=== PATIENT | female | born 1940 | race Caucasian/White ===

== ENCOUNTER → 2017-06-03 | Outpatient (CLI) | payer MEDICARE ==
--- NOTE | 2017-06-03 13:55 | MM ---
Reason for exam: screening (asymptomatic). Last mammogram was performed 1 year ago. History: Patient is postmenopausal. Took estrogen for 15 years. Took progesterone for 15 years. Physical Findings: A clinical breast exam by your physician is recommended on an annual basis and results should be correlated with mammographic findings. MG 3D Screening Mammo W/Cad Bilateral CC and MLO view(s) were taken. Prior study comparison: June 02, 2016, bilateral MG screening mammo w CAD. May 23, 2015, bilateral MG screening mammo w CAD. There are scattered fibroglandular densities. There is chronic nodularity in the left breast. No significant changes when compared with prior studies. ASSESSMENT: Benign, BI-RAD 2 RECOMMENDATION: Routine screening mammogram of both breasts in 1 year.
== END | disposition home or self-care (01) ==
LOC: RADMAMWWP 10:01
PROVIDERS: ATTEND Obstetrics & Gynecology
DX: Z12.31 Encounter for screening mammogram for malignant neoplasm of breast (principal)
CPT/HCPCS: 77063; G0202

== ENCOUNTER → 2020-07-10 | Outpatient (CLI) | payer MEDICARE ==
--- NOTE | 2020-07-10 19:27 | CT ---
EXAMINATION TYPE: CT brain wo con DATE OF EXAM: 07/10/2020 HISTORY: Headache x2 weeks not responding to tx. Pt feels pain in temporal/occipital region. CT DLP: 1138 mGycm. Automated Exposure Control for Dose Reduction was Utilized. TECHNIQUE: CT scan of the head is performed without contrast. COMPARISON: None. FINDINGS: There is no acute intracranial hemorrhage or midline shift identified. There is diffuse v entricular and sulcal prominence consistent with diffuse age-related cerebral atrophy. There is low- attenuation in the deep and periventricular white matter consistent with chronic small vessel ischemi c change in patient of this age. The globes are intact and the visualized sinuses are clear. IMPRESSION: No acute intracranial hemorrhage or midline shift. There is mild to moderate diffuse ag e-related cerebral atrophy and moderate to severe chronic small vessel ischemic change noted.
== END | disposition home or self-care (01) ==
LOC: RADCTMAIN 17:14
PROVIDERS: ATTEND Family Medicine
DX: I67.82 Cerebral ischemia (principal); R51.9 Headache, unspecified
CPT/HCPCS: 70450

== ENCOUNTER → 2020-09-26 | Outpatient (CLI) | payer MEDICARE ==
--- NOTE | 2020-10-01 11:33 | MM ---
Reason for exam: screening (asymptomatic). Last mammogram was performed 3 years and 4 months ago. History: Patient is postmenopausal. Took estrogen for 15 years. Took progesterone for 15 years. Physical Findings: A clinical breast exam by your physician is recommended on an annual basis and results should be correlated with mammographic findings. MG 3D Screening Mammo W/Cad Bilateral CC and MLO view(s) were taken. XCCL view(s) were taken of the right breast. Prior study comparison: June 03, 2017, bilateral MG 3d screening mammo w/cad. June 02, 2016, bilateral MG screening mammo w CAD. There are scattered fibroglandular densities. There is chronic nodularity in the left breast. No significant changes when compared with prior studies. ASSESSMENT: Benign, BI-RAD 2 RECOMMENDATION: Routine screening mammogram of both breasts in 1 year.
== END | disposition home or self-care (01) ==
LOC: RADMAMWWP 13:18
PROVIDERS: ATTEND Family Medicine
DX: Z12.31 Encounter for screening mammogram for malignant neoplasm of breast (principal)
CPT/HCPCS: 77063; 77067

== ENCOUNTER → 2021-04-17 | Outpatient (CLI) | payer MEDICARE ==
--- NOTE | 2021-04-17 11:17 | MR ---
EXAMINATION TYPE: MR lumbar spine wo con DATE OF EXAM: 04/17/2021 COMPARISON: MRI 03/22/2012 HISTORY: Lower back pain. TECHNIQUE: Multiplanar, multisequence images of the lumbar spine were acquired without IV contrast. L1-L2: Circumferential extension endplate disc complex results in some right-sided foraminal encroach ment greater than left. There is a right lateral disc bulge causing anterolateral mass effect on the thecal sac, possibly contact with the right L2 nerve root. L2-L3: Posterior broad-based disc bulge extends circumferentially to cause some foraminal encroachmen t towards the right. There is some facet arthropathy with hypertrophy ligamentum flavum causing some posterior lateral mass effect on the thecal sac greater on the right. Posterior broad-based disc bulg e causes minimal anterior mass effect on the thecal sac. L3-L4: Circumferential extension endplate disc complex results in foraminal encroachment on the right possibly contributed by the spinal curvature, left-sided neural foramen not well identified. There i s no sizable disc herniation evident. L4-L5: There is marked severe spinal stenosis, facet arthropathy with hypertrophy ligamentum flavum a s well as circumferential disc bulge is present, spinal stenosis has progressed. Circumferential exte nsion endplate disc complex contributed with the facet arthropathy results in bilateral foraminal enc roachment, there is encroachment on the lateral recesses. L5-S1: There is marked facet arthropathy. Circumferential extension endplate disc complex causes some right-sided foraminal encroachment. Lumbar segments are intact. No paraspinal masses are identified. Conus medullaris has a normal appe arance. The marked scoliotic curvature is again noted convex left. There is multilevel spondylosis, e ndplate discogenic marrow signal change. Lumbar vertebral bodies show preserved height. IMPRESSION: There has been progression of patient's spinal stenosis at L4-5, there is a marked scoliosis. Degener ative disc disease with multilevel facet arthropathy, foraminal encroachment. Additional findings abo ve.
== END | disposition home or self-care (01) ==
LOC: RADMRIMAIN 08:43
PROVIDERS: ATTEND Family Medicine
DX: M48.061 Spinal stenosis, lumbar region without neurogenic claudication (principal); M51.36 Other intervertebral disc degeneration, lumbar region; M47.816 Spondylosis without myelopathy or radiculopathy, lumbar region; M41.86 Other forms of scoliosis, lumbar region
CPT/HCPCS: 72148

== ENCOUNTER 2021-05-12 21:02 | Observation (INO) | payer MEDICARE ==
--- NOTE | 2021-05-12 21:16 | ED ---
General Adult HPI - General Stated complaint: Fall Time Seen by Provider: 05/12/21 21:07 Source: patient, EMS, RN notes reviewed Mode of arrival: EMS Limitations: no limitations - History of Present Illness Initial comments: Patient is a pleasant 81-year-old female presenting to the emergency department following a fall. Incident occurred in the bathroom. Patient was walking bathroom and next thing she knew she woke up on the floor. Patient is unclear if she could've slipped or passed out. A cooper does complain of some discomfort of the back of her head and neck. Patient also has some mild discomfort of her tailbone. Patient denies extremity injury. No weakness. No confusion. No history of chronic recurrent similar symptoms. - Related Data Home Medications Medication Instructions Recorded Confirmed Cholecalciferol [Vitamin D3 (25 2,000 units PO DAILY 06/16/16 06/23/16 Mcg = 1000 Iu)] Losartan-Hctz 50-12.5 mg [Hyzaar 1 tab PO DAILY 06/16/16 06/23/16 50-12.5] Lovastatin [Mevacor] 20 mg PO DAILY 06/16/16 06/23/16 Omeprazole [PriLOSEC] 20 mg PO AC-BRKFST 06/16/16 06/23/16 Sertraline [Zoloft] 50 mg PO DAILY 06/16/16 06/23/16 Previous Rx's Medication Instructions Recorded Acetaminophen-Codeine 300-30mg 1 each PO Q4HR PRN #30 tab 06/24/16 [Tylenol w/codeine #3] Ibuprofen [Motrin] 600 mg PO Q6HR PRN #60 tab 06/24/16 Allergies Allergy/AdvReac Type Severity Reaction Status Date / Time No Known Allergies Allergy Verified 06/23/16 09:46 Review of Systems ROS Statement: Those systems with pertinent positive or pertinent negative responses have been documented in the HPI. ROS Other: All systems not noted in ROS Statement are negative. Constitutional: Denies: fever Eyes: Denies: eye pain ENT: Denies: ear pain Respiratory: Denies: cough Cardiovascular: Denies: chest pain Endocrine: Denies: fatigue Gastrointestinal: Denies: abdominal pain Genitourinary: Denies: dysuria Musculoskeletal: Reports: as per HPI Skin: Denies: rash Neurological: Reports: as per HPI. Denies: weakness, confusion General Exam Limitations: no limitations General appearance: alert, in no apparent distress Head exam: Present: atraumatic, normocephalic Eye exam: Present: normal appearance, PERRL, EOMI. Absent: nystagmus ENT exam: Present: normal oropharynx Neck exam: Present: normal inspection, tenderness (Mild diffuse), other (C- collar is present) Respiratory exam: Present: normal lung sounds bilaterally Cardiovascular Exam: Present: regular rate, normal rhythm GI/Abdominal exam: Present: soft. Absent: tenderness Extremities exam: Present: normal inspection, full ROM. Absent: tenderness Back exam: Present: normal inspection. Absent: tenderness, vertebral tenderness Neurological exam: Present: alert, oriented X3, CN II-XII intact. Absent: motor sensory deficit Expanded Neurological exam: Present: protecting the airway Patient oriented to: Present: person, place, time Speech: Present: fluid speech Cranial nerves: EOM's Intact: Normal, Facial Sensation: Normal Motor strength exam: RUE: 5, LUE: 5, RLE: 5, LLE: 5 Eye Response: (4) open spontaneously Motor Response: (6) obeys commands Verbal Response: (5) oriented Psychiatric exam: Present: normal affect, normal mood Skin exam: Present: normal color Course Vital Signs 05/12/21 05/12/21 21:08 22:33 Temperature 98.2 F Pulse Rate 66 78 Respiratory 18 20 Rate Blood Pressure 192/86 186/91 O2 Sat by Pulse 100 97 Oximetry EKG Findings - EKG Comments: EKG Findings:: Normal sinus rhythm with a rate of 65. CT 160. QRS 84. QT 404. QTC 420. Left axis. Normal QRS. No acute st change Medical Decision Making - Medical Decision Making Patient reevaluated. Patient and family updated. [facility] was paged for admission covering for Dr. Yuliana Mix. - Lab Data Result diagrams: 05/12/21 21:19 05/12/21 21:19 Lab Results 05/12/21 05/12/21 05/12/21 Range/Units 21:19 21:19 21:19 WBC 8.2 (3.8-10.6) k/uL RBC 4.38 (3.80-5.40) m/uL Hgb 13.4 (11.4-16.0) gm/dL Hct 41.4 (34.0-46.0) % MCV 94.6 (80.0-100.0) fL MCH 30.7 (25.0-35.0) pg MCHC 32.4 (31.0-37.0) g/dL RDW 12.2 (11.5-15.5) % Plt Count 217 (150-450) k/uL MPV 8.2 Neutrophils % 64 % Lymphocytes % 26 % Monocytes % 6 % Eosinophils % 2 % Basophils % 0 % Neutrophils # 5.2 (1.3-7.7) k/uL Lymphocytes # 2.1 (1.0-4.8) k/uL Monocytes # 0.5 (0-1.0) k/uL Eosinophils # 0.2 (0-0.7) k/uL Basophils # 0.0 (0-0.2) k/uL PT 10.0 (9.0-12.0) sec INR 0.9 (<1.2) APTT 21.9 L (22.0-30.0) sec Sodium 137 (137-145) mmol/L Potassium 3.6 (3.5-5.1) mmol/L Chloride 99 (98-107) mmol/L Carbon Dioxide 30 (22-30) mmol/L Anion Gap 8 mmol/L BUN 26 H (7-17) mg/dL Creatinine 0.62 (0.52-1.04) mg/dL Est GFR (CKD-EPI)AfAm >90 (>60 ml/min/1.73 sqM) Est GFR (CKD-EPI)NonAf 85 (>60 ml/min/1.73 sqM) Glucose 105 H (74-99) mg/dL Calcium 9.7 (8.4-10.2) mg/dL Total Bilirubin 0.5 (0.2-1.3) mg/dL AST 24 (14-36) U/L ALT 17 (4-34) U/L Alkaline Phosphatase 65 (38-126) U/L Troponin I (0.000-0.034) ng/mL Total Protein 6.7 (6.3-8.2) g/dL Albumin 4.0 (3.5-5.0) g/dL 05/12/21 Range/Units 21:19 WBC (3.8-10.6) k/uL RBC (3.80-5.40) m/uL Hgb (11.4-16.0) gm/dL Hct (34.0-46.0) % MCV (80.0-100.0) fL MCH (25.0-35.0) pg MCHC (31.0-37.0) g/dL RDW (11.5-15.5) % Plt Count (150-450) k/uL MPV Neutrophils % % Lymphocytes % % Monocytes % % Eosinophils % % Basophils % % Neutrophils # (1.3-7.7) k/uL Lymphocytes # (1.0-4.8) k/uL Monocytes # (0-1.0) k/uL Eosinophils # (0-0.7) k/uL Basophils # (0-0.2) k/uL PT (9.0-12.0) sec INR (<1.2) APTT (22.0-30.0) sec Sodium (137-145) mmol/L Potassium (3.5-5.1) mmol/L Chloride (98-107) mmol/L Carbon Dioxide (22-30) mmol/L Anion Gap mmol/L BUN (7-17) mg/dL Creatinine (0.52-1.04) mg/dL Est GFR (CKD-EPI)AfAm (>60 ml/min/1.73 sqM) Est GFR (CKD-EPI)NonAf (>60 ml/min/1.73 sqM) Glucose (74-99) mg/dL Calcium (8.4-10.2) mg/dL Total Bilirubin (0.2-1.3) mg/dL AST (14-36) U/L ALT (4-34) U/L Alkaline Phosphatase (38-126) U/L Troponin I <0.012 (0.000-0.034) ng/mL Total Protein (6.3-8.2) g/dL Albumin (3.5-5.0) g/dL - Radiology Data Radiology results: report reviewed (Computed tomography scan of the brain shows atrophy and chronic small vessel ischemia. No definite acute intercranial abnormality. Lacunar infarct new from prior exam. CT cervical spine shows cervical fusion surgery. No fracture.), image reviewed Disposition Clinical Impression: Syncope Disposition: ADMITTED IP TO THIS HOSP Is patient prescribed a controlled substance at d/c from ED?: No Referrals: Yuliana Marin MD [Primary Care Provider] - 1-2 days Decision Time: 22:44
[2021-05-12 21:32] LABS: Basophils % (A) 0 %; Eosinophils # (A) 0.2 k/uL (0-0.7); Eosinophils % (A) 2 %; HCT 41.4 % (34.0-46.0); HGB 13.4 gm/dL (11.4-16.0); Lymphocytes # (A) 2.1 k/uL (1.0-4.8); Lymphocytes % (A) 26 %; MCH 30.7 pg (25.0-35.0); MCHC 32.4 g/dL (31.0-37.0); MCV 94.6 fL (80.0-100.0); Mean Platelet Volume 8.2; Monocytes # (A) 0.5 k/uL (0-1.0); Monocytes % (A) 6 %; Neutrophils # (A) 5.2 k/uL (1.3-7.7); Neutrophils % (A) 64 %; Platelet Count 217 k/uL (150-450); RBC 4.38 m/uL (3.80-5.40); RDW 12.2 % (11.5-15.5); WBC 8.2 k/uL (3.8-10.6)
[2021-05-12 21:41] LABS: ALT 17 U/L (4-34); AST 24 U/L (14-36); African American GFR (CKD) >90 (>60 ml/min/1.73 sqM); Alkaline Phosphatase 65 U/L (38-126); Anion Gap 8 mmol/L; Blood Urea Nitrogen 26 mg/dL (7-17); Calcium 9.7 mg/dL (8.4-10.2); Carbon Dioxide 30 mmol/L (22-30); Chloride 99 mmol/L (98-107); Glucose 105 mg/dL (74-99); Non-African American GFR(CKD) 85 (>60 ml/min/1.73 sqM); Potassium 3.6 mmol/L (3.5-5.1); Sodium 137 mmol/L (137-145); Total Bilirubin 0.5 mg/dL (0.2-1.3); Total Protein 6.7 g/dL (6.3-8.2)
[2021-05-12 22:08] LABS: INR 0.9 (<1.2); Partial Thromboplastin Time 21.9 sec (22.0-30.0)
--- NOTE | 2021-05-12 22:33 | CT ---
EXAMINATION TYPE: CT brain jesse morales con DATE OF EXAM: 05/12/2021 COMPARISON: 07/10/[address] scan HISTORY: Syncope with posterior and right sided head injury. CT DLP: 1383.5 mGycm Automated exposure control for dose reduction was used. Please of the brain and cervical spine obtained without contrast. There is cerebral atrophy. There is no mass effect nor midline shift. There is no sign of intracrania l hemorrhage. There is hypodensity in the periventricular white matter. There is evidence of 1 cm old lacunar infarct anterior right internal capsule. The cervical vertebra have normal alignment. There is multilevel fusion surgery from C2 to C7. There is extensive hardware posteriorly. There is no subluxation. IMPRESSION: Cerebral atrophy and chronic small vessel ischemia. No definite acute intracranial abnormality. Multilevel cervical fusion surgery. No fracture seen. There is new lacunar infarct anterior right internal capsule compared to old exam.
[2021-05-12] MEDS ORDERED: MORPHINE SULFATE 4 MG/ML SYRINGE IVP STA (22:44)
[2021-05-12] MEDS ORDERED: HYDROmorphone 0.5 MG/0.5 ML SYRINGE IVP PRN (22:45)
[2021-05-12] MEDS ORDERED: NALOXONE 0.4 MG/ML 1 ML VIAL IV PRN (22:45)
--- NOTE | 2021-05-12 22:45 | XR ---
EXAMINATION TYPE: XR pelvis AP view DATE OF EXAM: 05/12/2021 COMPARISON: NONE HISTORY: Pain TECHNIQUE: Single view FINDINGS: The pelvic ring appears intact. Proximal femurs are intact. There is lumbar levorotoscolios is. Sacroiliac joints are intact. IMPRESSION: No pelvic fracture seen.
--- NOTE | 2021-05-12 22:46 | XR ---
EXAMINATION TYPE: XR chest 1V portable DATE OF EXAM: 05/12/2021 COMPARISON: NONE HISTORY: Trip and fall TECHNIQUE: Single view FINDINGS: Heart is normal. Lungs are clear of infiltrate. There is no heart failure. Thoracic aorta i s atheromatous. There is no pleural effusion. Bony thorax is intact. There is cervical spine fusion s urgery. IMPRESSION: No active cardiopulmonary disease. Normal heart.
[2021-05-12] MEDS: SODIUM CHLORIDE 0.9% 1,000 ML IV SCH (22:52)
[2021-05-12 23:21] LABS: Amorphous Sediment,Urine Rare /hpf; Appearance,Urine Clear (Clear); Bilirubin,Urine Negative (Negative); Blood,Urine Negative (Negative); Color,Urine Yellow; Glucose,Urine (UA) Negative (Negative); Ketones,Urine Negative (Negative); Leukocyte Esterase,Urine Moderate (Negative); Mucus,Urine Rare /hpf; Nitrite,Urine Negative (Negative); PH, Urine 6.5 (5.0-8.0); Protein,Urine Negative (Negative); RBC,Urine 2 /hpf (0-5); Specific Gravity,Urine 1.012 (1.001-1.035); Squamous Epithelial Cell,Urine 2 /hpf (0-4); Urobilinogen,Urine <2.0 mg/dL (<2.0); WBC,Urine 9 /hpf (0-5)
[2021-05-13] MEDS: ACETAMINOPHEN TAB 325 MG TAB PO PRN ×2 (07:48→15:36)
[2021-05-13] MEDS ORDERED: SENNOSIDES 8.6 MG TAB PO PRN (08:43)
[2021-05-13] MEDS ORDERED: FAMOTIDINE 20 MG/2 ML VIAL IV SCH (09:00)
[2021-05-13] MEDS: DULoxetine HCL 60 MG CAPSULE.DR PO SCH (09:32)
[2021-05-13] MEDS: LOSARTAN 50 MG TAB PO SCH (09:32)
[2021-05-13] MEDS: CALCIUM CARB-VIT D 500 MG-5 MCG TAB PO SCH (09:32)
[2021-05-13] MEDS: CHOLECALCIFEROL 25 MCG (1000 IU) TABLET PO SCH (09:32)
[2021-05-13] MEDS: POTASSIUM CHLORIDE ER 10 MEQ TAB.ER.PRT PO SCH (09:32)
[2021-05-13] MEDS: HEPARIN SODIUM,PORCINE/PF 5,000 UNIT/0.5 ML SYRINGE SQ SCH ×2 (09:33→21:19)
[2021-05-13] MEDS: hydroCHLOROthiazide 25 MG TAB PO SCH (09:33)
--- NOTE | 2021-05-13 10:00 | P.HPIM ---
History of Present Illness This is a pleasant 81 years old female with past medical history of GERD, hypertension, hyperlipidemia, anxiety and depression Yesterday evening 5-6 PM patient passed out after she woke up and went to go to the bathroom, she fell and hit her head and lower back until bone. She denies any dizziness or chest pain. No blurred vision or slurred speech. No weakness or numbness. She has some pain in her tailbone area. No diarrhea or vomiting. She stated in the floor to her came and call the ambulance for her. She is noticing also she is pain more frequently over the last 2 days but no discomfort or dysuria but with urgency She is complaining of from some left sided chest pain from the fall, pain is nonradiating about 3-4/10 She denies smoking, alcohol or illicit drugs. Symptoms of Depression or Suicidal Ideation Currently vitals are stable, she was marked bradycardic this morning at 56. Labs including CBC, INR, BMP and liver enzymes are unremarkable. Serial troponin are negative less than 0.0123. Urinalysis showing moderate leukocyte esterase and hypoxia 9 suspicious for UTI. However as not detected. EKG showing normal sinus rhythm at [address]-T changes Chest x-ray: No acute process Pelvic x-ray: No fracture or dislocation CT of the head and neck: No acute intracranial process. There is a new lacunar infarct anterior right internal capsule compared to old exam. ;no cervical fract ure or dislocation, there are multilevel cervical fusion surgery. Emergency room she was started on normal saline at 75 mL/h and started on Dilaudid/morphine In the emergency room cardiology and neurologist were consulted Review of Systems CONSTITUTIONAL: No fever, no malaise, no fatigue. HEENT: No recent visual problems or hearing problems. Denied any sore throat. CARDIOVASCULAR: No orthopnea, PND, no palpitations, no syncope. PULMONARY: No shortness of breath, no cough, no hemoptysis. GASTROINTESTINAL: No diarrhea, no nausea, no vomiting, no abdominal pain. Normoactive bowel sounds. NEUROLOGICAL: No headaches, no weakness, no numbness. HEMATOLOGICAL: Denies any bleeding or petechiae. GENITOURINARY: Denies any burning micturition, frequency, or urgency. MUSCULOSKELETAL/RHEUMATOLOGICAL: Denies any joint pain, swelling, or any muscle pain. ENDOCRINE: Denies any polyuria or polydipsia. Past Medical History Past Medical History: GERD/Reflux, Hyperlipidemia, Hypertension Additional Past Medical History / Comment(s): scolosis. History of Any Multi-Drug Resistant Organisms: None Reported Past Surgical History: Appendectomy, Hysterectomy Additional Past Surgical History / Comment(s): neck surgery Past Psychological History: Anxiety, Depression Smoking Status: Former smoker Past Alcohol Use History: None Reported Past Drug Use History: None Reported Medications and Allergies Home Medications Medication Instructions Recorded Confirmed Type Omeprazole [PriLOSEC] 20 mg PO DAILY 06/16/16 05/12/21 History Acetaminophen [Tylenol Extra 500 mg PO Q6H PRN 05/12/21 05/12/21 History Strength] Calcium Carbonate/Vitamin D3 1 cap PO DAILY 05/12/21 05/12/21 History [Calcium 600 mg-D3 10 Mcg (400 Iu)] Celecoxib [CeleBREX] 200 mg PO DAILY 05/12/21 05/12/21 History Cholecalciferol (Vitamin D3) 125 mcg PO DAILY 05/12/21 05/12/21 History [Vitamin D3 (125 MCG = 5,000 IU)] DULoxetine HCL [Cymbalta] 60 mg PO DAILY 05/12/21 05/12/21 History Losartan Potassium 100 mg PO DAILY 05/12/21 05/12/21 History Magnesium Chloride [Slow-Mag] 128 mg PO DAILY 05/12/21 05/12/21 History Potassium Chloride ER [K-Dur 10] 10 meq PO DAILY 05/12/21 05/12/21 History Sennosides [Senokot] 8.6 mg PO BID PRN 05/12/21 05/12/21 History hydroCHLOROthiazide 25 mg PO DAILY 05/12/21 05/12/21 History Allergies Allergy/AdvReac Type Severity Reaction Status Date / Time No Known Allergies Allergy Verified 06/23/16 09:46 Physical Exam Vitals: Vital Signs Temp Pulse Resp BP Pulse Ox 05/13/21 07:46 56 L 18 131/61 95 05/13/21 06:16 53 L 16 119/61 96 05/13/21 04:00 62 16 131/63 96 05/12/21 23:55 71 20 148/78 98 05/12/21 22:33 78 20 186/91 97 05/12/21 21:08 98.2 F 66 18 192/86 100 Intake and Output 09/27/21 09/28/21 09/28/21 22:59 06:59 14:59 Other: Weight 64.365 kg GENERAL: The patient is alert and oriented x3, not in any acute distress. Well developed, well nourished. HEENT: Pupils are round and equally reacting to light. EOMI. No scleral icterus. No conjunctival pallor. Normocephalic, atraumatic. No pharyngeal erythema. No thyromegaly. CARDIOVASCULAR: S1 and S2 present. No murmurs, rubs, or gallops. PULMONARY: Chest is clear to auscultation, no wheezing or crackles. ABDOMEN: Soft, nontender, nondistended, normoactive bowel sounds. No palpable organomegaly. MUSCULOSKELETAL: No joint swelling or deformity. EXTREMITIES: No cyanosis, clubbing, or pedal edema. NEUROLOGICAL: Gross neurological examination did not reveal any focal deficits. SKIN: No rashes. No petechiae Results CBC & Chem 7: 05/12/21 21:19 05/12/21 21:19 Labs: Abnormal Lab Results - Last 24 Hours (Table) 05/12/21 05/12/21 05/12/21 Range/Units 21:19 21:19 21:19 APTT 21.9 L (22.0-30.0) sec BUN 26 H (7-17) mg/dL Glucose 105 H (74-99) mg/dL Ur Leukocyte Esterase Moderate H (Negative) Urine WBC 9 H (0-5) /hpf Amorphous Sediment Rare H (None) /hpf Urine Mucus Rare H (None) /hpf Assessment and Plan Assessment: syncope possible acute urinary tract infection New lacunar infarct not seen in the old exam Hypertension Hyperlipidemia History of GERD History of anxiety and depression Plan: this is a pleasant 81 years old female who presents with syncope. Cardiology consult and neurology consul check orthostatic vitals and TSH Repeat urinalysis and started the patient on ceftriaxone Labs and medication were reviewed.. Continue same treatment. Continue with symptomatic treatment. Resume home medication. Monitor lytes and vitals. DVT and GI prophylaxis. Further recommendations depends on the clinical course of the patient DVT prophylaxis: Subcutaneous heparin GI Prophylaxis: Pepcid PT/OT: Pending Prognosis is guarded
--- NOTE | 2021-05-13 10:07 | P.CRDCN ---
History of Present Illness History of present illness: This is a pleasant 81 year old female with a past medical history of hypertension, scoliosis. She also states she has been being worked up as an outpatient including an MRI for bilateral lower extremity weakness that has been going on for a few months. She does not follow with a allergist/immunologist. We are consulted for syncope. Patient presents to the emergency department after a fall at home. Patient states she was walking bathroom, she got to the sink, and next thing she knew she woke up on the floor. She does think she passed out. Her heard her hit the floor, she was awake at that time. EMS was called. She states this has never occurred before. She denies lightheadedness, dizziness, headache, palpitations, chest pain, shortness of breath prior to the event. She states she continues to feel unsteady and "wobbly" on her feet. She denies any vision changes, loss of bowel or bladder. She denies any history of [place], stroke, coronary artery disease or diabetes. She denies use of tobacco or alcohol. Patient's home medications include hydrochlorothiazide 25 mg daily, losartan 100 mg daily, potassium chloride 10 mEq daily DIAGNOSTICS Head and cervical spine CT revealed a new lacunar infarct anterior right internal capsule EKG reveals sinus rhythm HR 65, mild horizontal ST depression in leads II and aVL. no prior EKG to compare Pelvis x-ray negative for fractures Chest xray no acute cardiopulmonary process. MRI lumbar spine on 04/17/21- progression in patient's spinal stenosis at L4-L5, marked scoliosis, and degenerative disc disease with multilevel facet arthropathy. Laboratory reviewed, CBC unremarkable, troponin negative 3, sodium 137, potassium 3.6, BUN 26, serum creatinine 0.6, TSH 0.19, free T4 pending COVID-19 PCR negative REVIEW OF SYSTEMS At the time of my exam: CONSTITUTIONAL: +syncope Denies fever or chills. CARDIOVASCULAR: Denies chest pain, shortness of breath, orthopnea, PND or palpitations. RESPIRATORY: Denies cough. GASTROINTESTINAL: Denies abdominal pain, diarrhea, constipation, nausea or vomiting. MUSCULOSKELETAL: Denies myalgias. NEUROLOGIC: +bilateral lower extremity weakness Denies numbness, tingling, headacbe ENDOCRINE: Denies fatigue, weight change, polydipsia or polyurina. GENITOURINARY: Denies burning, hematuria or urgency with micturation. HEMATOLOGIC: Denies history of anemia or bleeding. PHYSICAL EXAMINATION Blood pressure 131/61, heart rate 56, afebrile, maintaining oxygen saturations on room air CONSTITUTIONAL: No apparent distress. HEENT: Head is normocephalic. Pupils are equal, round. Sclerae anicteric. Mucous membranes of the mouth are moist. No JVD. No carotid bruit. CHEST EXAMINATION: Lungs are clear to auscultation. No chest wall tenderness is noted on palpation or with deep breathing. HEART EXAMINATION: Regular rate and rhythm. S1, S2 heard. No murmurs, gallops or rub. ABDOMEN: Soft, nontender. Positive bowel sounds. EXTREMITIES: 2+ peripheral pulses, no lower extremity edema and no calf tenderness. SKIN: warm, dry NEUROLOGIC EXAMINATION: Patient is awake, alert and oriented x3. ASSESSMENT Syncope Bilateral lower extremity weakness New lacunar infarct reported on head CT Hypertension PLAN -Patient's syncopal episode possibly vasovagal, however, patient continues to feel unsteady on her feet also with abnormality seen on CT scan- Neurology following -Obtain 2D echocardiogram and doppler study to assess cardiac structure and function. -Recommend 30 day event monitor prior to discharge to rule out arrhythmia -From a cardiology perspective, pending neurology recommendations, if ech ocardiogram with no acute findings, no arrhythmia on telemetry, and patient hemodynamically stable, ok to discharge after event monitor is in place and follow up as an outpatient with Dr. Saravia. Thank you kindly for this consultation. Nurse Practitioner note has been reviewed, I agree with a documented findings and plan of care. Patient was seen and examined. Past Medical History Past Medical History: GERD/Reflux, Hyperlipidemia, Hypertension Additional Past Medical History / Comment(s): scolosis. History of Any Multi-Drug Resistant Organisms: None Reported Past Surgical History: Appendectomy, Hysterectomy Additional Past Surgical History / Comment(s): neck surgery Past Psychological History: Anxiety, Depression Smoking Status: Former smoker Past Alcohol Use History: None Reported Past Drug Use History: None Reported Medications and Allergies Home Medications Medication Instructions Recorded Confirmed Type Omeprazole [PriLOSEC] 20 mg PO DAILY 06/16/16 05/12/21 History Acetaminophen [Tylenol Extra 500 mg PO Q6H PRN 05/12/21 05/12/21 History Strength] Calcium Carbonate/Vitamin D3 1 cap PO DAILY 05/12/21 05/12/21 History [Calcium 600 mg-D3 10 Mcg (400 Iu)] Celecoxib [CeleBREX] 200 mg PO DAILY 05/12/21 05/12/21 History Cholecalciferol (Vitamin D3) 125 mcg PO DAILY 05/12/21 05/12/21 History [Vitamin D3 (125 MCG = 5,000 IU)] DULoxetine HCL [Cymbalta] 60 mg PO DAILY 05/12/21 05/12/21 History Losartan Potassium 100 mg PO DAILY 05/12/21 05/12/21 History Magnesium Chloride [Slow-Mag] 128 mg PO DAILY 05/12/21 05/12/21 History Potassium Chloride ER [K-Dur 10] 10 meq PO DAILY 05/12/21 05/12/21 History Sennosides [Senokot] 8.6 mg PO BID PRN 05/12/21 05/12/21 History hydroCHLOROthiazide 25 mg PO DAILY 05/12/21 05/12/21 History Allergies Allergy/AdvReac Type Severity Reaction Status Date / Time No Known Allergies Allergy Verified 06/23/16 09:46 Physical Exam Vitals: Vital Signs Temp Pulse Resp BP Pulse Ox 05/13/21 07:46 56 L 18 131/61 95 05/13/21 06:16 53 L 16 119/61 96 05/13/21 04:00 62 16 131/63 96 05/12/21 23:55 71 20 148/78 98 05/12/21 22:33 78 20 186/91 97 05/12/21 21:08 98.2 F 66 18 192/86 100 Intake and Output 05/12/21 05/13/21 05/13/21 22:59 06:59 14:59 Other: Weight 64.365 kg Results 05/12/21 21:19 05/12/21 21:19 Cardiac Enzymes 05/12/21 05/12/21 05/13/21 Range/Units 21:19 21:19 00:54 AST 24 (14-36) U/L Troponin I <0.012 <0.012 (0.000-0.034) ng/mL 05/13/21 Range/Units 03:07 AST (14-36) U/L Troponin I <0.012 (0.000-0.034) ng/mL Coagulation 05/12/21 Range/Units 21:19 PT 10.0 (9.0-12.0) sec APTT 21.9 L (22.0-30.0) sec CBC 05/12/21 Range/Units 21:19 WBC 8.2 (3.8-10.6) k/uL RBC 4.38 (3.80-5.40) m/uL Hgb 13.4 (11.4-16.0) gm/dL Hct 41.4 (34.0-46.0) % Plt Count 217 (150-450) k/uL Comprehensive Metabolic Panel 05/12/21 Range/Units 21:19 Sodium 137 (137-145) mmol/L Potassium 3.6 (3.5-5.1) mmol/L Chloride 99 (98-107) mmol/L Carbon Dioxide 30 (22-30) mmol/L BUN 26 H (7-17) mg/dL Creatinine 0.62 (0.52-1.04) mg/dL Glucose 105 H (74-99) mg/dL Calcium 9.7 (8.4-10.2) mg/dL AST 24 (14-36) U/L ALT 17 (4-34) U/L Alkaline Phosphatase 65 (38-126) U/L Total Protein 6.7 (6.3-8.2) g/dL Albumin 4.0 (3.5-5.0) g/dL Current Medications Generic Name Dose Route Start Last Admin Trade Name Freq PRN Reason Stop Dose Admin Acetaminophen 650 mg 05/12/21 22:45 05/13/21 07:48 Acetaminophen Tab 325 Mg Tab PO 650 mg Q6HR PRN Administration Mild Pain or Fever > 100.5 Hydromorphone HCl 0.5 mg 05/12/21 22:45 Hydromorphone 0.5 Mg/0.5 Ml Syringe IVP Q3HR PRN Moderate Pain Sodium Chloride 1,000 mls @ 75 mls/hr 05/12/21 22:45 05/12/21 22:52 Saline 0.9% IV 75 mls/hr .[id number] SARAH Administration Naloxone HCl 0.2 mg 05/12/21 22:45 Naloxone 0.4 Mg/Ml 1 Ml Vial IV Q2M PRN Opioid Reversal Intake and Output 05/12/21 05/13/21 05/13/21 22:59 06:59 14:59 Other: Weight 64.365 kg 05/12/21 21:19 05/12/21 21:19
--- NOTE | 2021-05-13 10:22 | P.CNNES ---
History of Present Illness Consult date: 05/13/21 Requesting physician: Eliseo Briscoe Reason for Consult: syncope History of Present Illness: This is an 81-year-old woman medical history of hypertension, cervical fusion in 2009, dyslipidemia, GERD who presented emergency department on 05/12/2021 following a fall. She is accompanied with her as well as her daughter who are at bedside. Patient stated that yesterday around 8 inch p.m. she was sleeping on a recliner so she stood up she went to the window within when she went to the bathroom to turn on the light she passed out and she fell backward on the floor. Per the was around 8:20pm when he heard a fall. Patient stated that that she denied of any chest pain, palpitation, any tunnel vision, denies feeling lightheadedness prior to the episode, denies feeling any dizziness. When the check up on her she was lying on the floor looking up and her eyes were open and there are midline. He denied that the patient was jerking of any extremities, denied any foaming around the mouth. He stated that she was just not responsive and lasted for about 3 minutes. Patient denied at any urinary or bowel incontinence or any tongue bite or soreness of the tongue. She denies any history of seizures in the past. She had an episode about 4 weeks ago where when she stands up for prolonged periods time that she felt her feet are numb and fell but did not pass out. She denies of any history of diabetes. She also denies any history of stroke or TIAs that she is aware of. Currently she has some pain over the posterior head region and she stated is 4 out of 10. She denies of any photophobia or any photophobia. She does have nausea denies any vomiting. She denies of any focal weakness or numbness currently. Some of the patient's home medication consist of vitamin D3, Celebrex, hydroch lorothiazide, potassium, losartan, Cymbalta, alt result, magnesium chloride. Some other workup in the hospital consisted of: Initial vital signs his blood pressure of 192/86, heart rate of 66, respiratory of 18, temperature of 98.2 Fahrenheit oral and pulse ox 100% at room air. Most recent blood pressure is 131/61. CBC with differential is unremarkable. Chemistry panel seems unremarkable as well. Calcium is 9.7, AST is 24 ALT of 17. Schulte virus PCR was not detected. CT of the head is reported as new lacunar infarct in the anterior right internal capsule compared to old exam which was on 07/10/2020. Cerebral atrophy and chronic small vessel ischemia. No definite acute intracranial abnormality. I personally reviewed the CT of the head and I felt the patient had the lacunar infarct on the bilateral basal ganglia which looked remote but I do see what the reading radiologist noted over the right basal ganglia there is any new lesion not seen on the old CT of the head in 2019 but this lacunar infarcts is seems not acute or subacute. CT cervical spine was reported as multiple level cervical fusion surgery over the C2 to C7. No fracture seen. EKG is reported as normal sinus rhythm. Cannot rule out anterior infarct, age undetermined. Abnormal EKG. Review of Systems Review of system: The 12 point system was reviewed and apparent positive and ne gative per HPI. Past Medical History Past Medical History: GERD/Reflux, Hyperlipidemia, Hypertension Additional Past Medical History / Comment(s): scolosis. History of Any Multi-Drug Resistant Organisms: None Reported Past Surgical History: Appendectomy, Hysterectomy Additional Past Surgical History / Comment(s): neck surgery Past Psychological History: Anxiety, Depression Smoking Status: Former smoker Past Alcohol Use History: None Reported Past Drug Use History: None Reported Medications and Allergies Home Medications Medication Instructions Recorded Confirmed Type Omeprazole [PriLOSEC] 20 mg PO DAILY 06/16/16 05/12/21 History Acetaminophen [Tylenol Extra 500 mg PO Q6H PRN 05/12/21 05/12/21 History Strength] Calcium Carbonate/Vitamin D3 1 cap PO DAILY 05/12/21 05/12/21 History [Calcium 600 mg-D3 10 Mcg (400 Iu)] Celecoxib [CeleBREX] 200 mg PO DAILY 05/12/21 05/12/21 History Cholecalciferol (Vitamin D3) 125 mcg PO DAILY 05/12/21 05/12/21 History [Vitamin D3 (125 MCG = 5,000 IU)] DULoxetine HCL [Cymbalta] 60 mg PO DAILY 05/12/21 05/12/21 History Losartan Potassium 100 mg PO DAILY 05/12/21 05/12/21 History Magnesium Chloride [Slow-Mag] 128 mg PO DAILY 05/12/21 05/12/21 History Potassium Chloride ER [K-Dur 10] 10 meq PO DAILY 05/12/21 05/12/21 History Sennosides [Senokot] 8.6 mg PO BID PRN 05/12/21 05/12/21 History hydroCHLOROthiazide 25 mg PO DAILY 05/12/21 05/12/21 History Allergies Allergy/AdvReac Type Severity Reaction Status Date / Time No Known Allergies Allergy Verified 06/23/16 09:46 Physical Examination - Vital Signs Vital Signs: Vital Signs Temp Pulse Resp BP Pulse Ox 05/13/21 07:46 56 L 18 131/61 95 05/13/21 06:16 53 L 16 119/61 96 05/13/21 04:00 62 16 131/63 96 05/12/21 23:55 71 20 148/78 98 05/12/21 22:33 78 20 186/91 97 05/12/21 21:08 98.2 F 66 18 192/86 100 Intake and Output 05/12/21 05/13/21 05/13/21 22:59 06:59 14:59 Other: Weight 64.365 kg GENERAL: The patient is lying in bed and is not in acute distress. CHEST: The heart rate is regular rate rhythm. No murmurs to auscultation. No carotid bruit bilaterally. LUNG: Clear to auscultation bilaterally no wheezing noted throughout. Not labored breathing. ABDOMEN/GI: Bowel sounds present in all 4 quadrants. No tenderness to palpation throughout. NEUROLOGICAL: Higher mental function: The patient is awake, alert, oriented to self, place and time. Patient is following commands. No aphasia and no neglect. Cranial nerves: The pupils are round, equal and reactive to light and accommodation. Visual delgado are full to confrontation throughout. Extraocular movement is intact no nystagmus is noted. Facial sensation is normal to touch throughout. The facial strength is normal throughout. Hearing is normal bilaterally to hand rub. Tongue is midline and moved [id number] without any difficulty. No dysarthria is noted. Shoulder shrug is normal bilaterally. Motor: The strength is 5 over 5 throughout. Normal tone and bulk. Cerebellum: Normal finger to nose heel to chin bilaterally. Sensation: Sensation is normal to touch throughout. Reflexes (right/left): 3+ throughout uppers while patellar are 2+ and ankles are 1+ bilaterally. Plantars are mute bilaterally. Results - Laboratory Findings CBC and BMP: 05/12/21 21:19 05/12/21 21:19 Abnormal Lab Findings: Abnormal Labs 05/12/21 05/12/21 05/12/21 21:19 21:19 21:19 APTT 21.9 L BUN 26 H Glucose 105 H Ur Leukocyte Esterase Moderate H Urine WBC 9 H Amorphous Sediment Rare H Urine Mucus Rare H Assessment and Plan Assessment: Syncope: Unknown exact cause. Rule out orthostatic. Had an episode about 4 weeks ago where upon prolonged standing she felt her feet are numb and fell. Lacunar infarct over bilateral basal ganglia seems small vessel disease and there is at new lacunar seen on this image and not seen on the prior 06/2020 image (but is not acute or subacute). Likely small vessel disease. History of cervical fusion between C2 to C7 in 2009 Like Hypertension Plan: I ordered an routine EEG. I'll not start the patient on antiepileptic drugs unless there is epileptiform discharges or seizure on the EEG. Nurse was notified to obtain orthostatics. Because of patient also stroke all get the rest of the stroke workup which is a carotid duplex and hemoglobin A1c as well as a lipid panel. Place the patient on aspirin 81 mg daily and Lipitor 20 mg daily at bedtime for secondary stroke prophylaxis. Continue cardiac monitoring. Continue neuro checks Cardiology team is consulted. They ordered the 2-D echo and an event monitor for 30 days. Physical therapy and occupation therapy are consulted. We'll defer the rest of the medical management to the primary team Upon discharge recommend the patient to follow-up with a neurologist as an outpatient within 1-2 weeks. Thank you for the consultation. The plan is discussed with the patient and her family members who at bedside ( and daughter). River Tolbert MD Neuro-Hospitalist Time with Patient: Greater than 30
[2021-05-13] MEDS: ASPIRIN 81 MG PO SCH (10:34)
--- NOTE | 2021-05-13 10:42 | ECHOF ---
Referral Reason:syncope MEASUREMENTS -------- HEIGHT: 129.5 cm WEIGHT: 64.0 kg BP: IVSd: 1.1 cm (0.6 - 1.1) LVIDd: 3.3 cm (3.9 - 5.3) LVPWd: 1.2 cm (0.6 - 1.1) IVSs: 1.9 cm LVIDs: 1.8 cm LVPWs: 1.4 cm Ao Diam: 3.0 cm (2.0 - 3.7) AV Cusp: 1.9 cm (1.5 - 2.6) LA Diam: 2.6 cm (2.7 - 3.8) MV EXCURSION: 22.560 mm (> 18.000) MV EF SLOPE: 21 mm/s (70 - 150) EPSS: 1.0 cm MV E Rui: 0.81 m/s MV DecT: 276 ms MV A Rui: 1.32 m/s MV E/A Ratio: 0.61 AR PHT: 1199 ms RAP: 5.00 mmHg RVSP: 10.65 mmHg FINDINGS -------- This was a technically adequate study. The left ventricular size is normal. Left ventricular wall thickness is normal. Overall left vent ricular systolic function is normal with, an EF between 55 - 60 %. The diastolic filling pattern is normal for the age of the patient 11.88. The right ventricle is normal in size. The left atrial size is normal. Normal LA size by volume 22+/-6 ml/m2. The right atrial size is normal. The aortic valve is trileaflet and appears structurally normal. There is mild aortic regurgitation. The mitral valve is normal. Mild mitral regurgitation is present. The tricuspid valve appears structurally normal. Mild tricuspid regurgitation present. Right vent ricular systolic pressure is normal at < 35 mmHg. There is no pulmonic regurgitation present. The aortic root size is normal. Normal inferior vena cava with normal inspiratory collapse consistent with estimated right atrial pre ssure of 5 mmHg. There is no pericardial effusion. CONCLUSIONS -------- 1. The left ventricular size is normal. 2. Left ventricular wall thickness is normal. 3. Overall left ventricular systolic function is normal with, an EF between 55 - 60 %. 4. The diastolic filling pattern is normal for the age of the patient 11.88 5. There is mild aortic regurgitation. 6. Mild mitral regurgitation is present. 7. Mild tricuspid regurgitation present. 8. There is no pericardial effusion. IT PROFESSIONAL: Yadi Raymond RDCS
[2021-05-13 10:55] LABS: T4, Free (Free Thyroxine) 1.3 ng/dL (0.78-2.19)
--- NOTE | 2021-05-13 11:31 | US ---
EXAMINATION TYPE: US carotid duplex BILAT DATE OF EXAM: 05/13/2021 COMPARISON: NONE CLINICAL HISTORY: 81-year-old female syncope. TECHNIQUE: Carotid duplex ultrasound examination. Indirect Doppler criteria was utilized. FINDINGS: EXAM MEASUREMENTS: RIGHT: Peak Systolic Velocity (PSV) cm/sec ----- Right CCA: 78.4 ----- Right ICA: 70.2 ----- Right ECA: 73.5 ICA/CCA ratio: 0.9 RIGHT: End Diastole cm/sec ----- Right CCA: 8.6 ----- Right ICA: 20.8 ----- Right ECA: 0.0 LEFT: Peak Systolic Velocity (PSV) cm/sec ----- Left CCA: 172.5 ----- Left ICA: 136.8 ----- Left ECA: 89.6 ICA/CCA ratio: 0.8 LEFT: End Diastole cm/sec ----- Left CCA: 0.0 ----- Left ICA: 27.6 ----- Left ECA: 3.1 VERTEBRALS (direction of flow): Right Vertebral: Antegrade Left Vertebral: Antegrade Rhythm: Normal Copy Center Operator notes: Mild atherosclerotic changes. Very tortuous left CCA & left ICA IMPRESSION: Mildly elevated peak systolic velocity proximal left ICA but within normal end-diastolic velocity an d ICA/CCA ratio. Findings compatible with turbulent flow from vessel tortuosity. No hemodynamically s ignificant ICA stenosis on either side by Doppler criteria. Criteria for Assigning % of Stenosis / Diameter reduction (Estimation based on the indirect measurements of the internal carotid artery velocities (ICA PSV). 1. Normal (no stenosis)=ICA PSV < 125 cm/s: ratio < 2.0: ICA EDV<40 cm/s. 2. Less than 50% stenosis=ICA PSV < 125 cm/s: ratio < 2.0: ICA EDV<40 cm/s. 3. 50 to 69% stenosis=ICA PSV of 125 to 230 cm/s: ration 2.0 ? 4.0: ICA EDV 40-100 cm/s. 4. Greater than 70% stenosis to near occlusion= ICA PSV > 230 cm/s: ratio > 4.0: ICA EDV > 100 cm/s. 5. Near occlusion= ICA PSV velocities may be low or undetectable: variable ratio and ICA EDV. 6. Total occlusion=unable to detect flow.
--- NOTE | 2021-05-13 13:41 | EEG ---
ELECTROENCEPHALOGRAM REPORT DATE OF SERVICE: 05/13/2021. CLINICAL HISTORY: This is an 81-year-old woman who presented after a syncopal episode. The video EEG is obtained to evaluate for seizure epileptiform activity. RELEVANT MEDICATION: The patient is not on any antiepileptic drug. EEG TYPE: A routine 21-channel EEG is performed with video using the 10/20 electrode placement system. DESCRIPTION: Wakefulness is obtained. During wakefulness, there is a posterior-dominant rhythm of low to moderate voltage of 8.5-9.5 hertz activity. There is no physiological stage 2 sleep architecture seen. There is no focal slowing. Interictal and ictal is none. ACTIVATION PROCEDURE: Photic stimulation and hyperventilation are not performed. CLINICAL INTERPRETATION: This is a normal routine EEG. There are no focal slowing, epileptiform discharges or seizure on the EEG. Clinical correlation is recommended. SUDHAKAR / EDVIN: [id number] / MTDD
[2021-05-13] MEDS: SODIUM CHLORIDE 0.9% 1,000 ML IV SCH (20:05)
[2021-05-13] MEDS ORDERED: ATORVASTATIN 20 MG TAB PO SCH (21:00)
[2021-05-13] MEDS: FAMOTIDINE 20 MG TAB PO SCH (21:19)
[2021-05-13 22:20] LABS: Appearance,Urine Clear (Clear); Bilirubin,Urine Negative (Negative); Blood,Urine Negative (Negative); Color,Urine Yellow; Glucose,Urine (UA) Negative (Negative); Ketones,Urine Negative (Negative); Leukocyte Esterase,Urine Negative (Negative); Nitrite,Urine Negative (Negative); Protein,Urine Negative (Negative); Specific Gravity,Urine 1.012 (1.001-1.035); Urobilinogen,Urine <2.0 mg/dL (<2.0)
[2021-05-14] MEDS: SODIUM CHLORIDE 0.9% 1,000 ML IV SCH (03:41)
[2021-05-14 07:42] VITALS: BP 161/73; PULSE 55; RESP 18; TEMP 98.5
[2021-05-14] MEDS: ACETAMINOPHEN TAB 325 MG TAB PO PRN ×2 (08:07→13:22)
[2021-05-14] MEDS: FAMOTIDINE 20 MG TAB PO SCH (08:40)
[2021-05-14] MEDS: POTASSIUM CHLORIDE ER 10 MEQ TAB.ER.PRT PO SCH (08:40)
[2021-05-14] MEDS: ASPIRIN 81 MG PO SCH (08:40)
[2021-05-14] MEDS: DULoxetine HCL 60 MG CAPSULE.DR PO SCH (08:40)
[2021-05-14] MEDS: CHOLECALCIFEROL 25 MCG (1000 IU) TABLET PO SCH (08:40)
[2021-05-14] MEDS: HEPARIN SODIUM,PORCINE/PF 5,000 UNIT/0.5 ML SYRINGE SQ SCH (08:40)
[2021-05-14] MEDS: hydroCHLOROthiazide 25 MG TAB PO SCH (08:41)
[2021-05-14] MEDS: CALCIUM CARB-VIT D 500 MG-5 MCG TAB PO SCH (08:41)
[2021-05-14] MEDS: LOSARTAN 50 MG TAB PO SCH (08:41)
--- NOTE | 2021-05-14 10:48 | P.PN ---
Subjective Progress Note Date: 05/14/21 The patient is seen at bedside and denies of any further passing out events. She complaints of lower back pain and denies any radiation. She said she had this for long time and thinks she follow-up as outpatient. Per telemetry team her heart rate was as sinus bradycardia and got as low as 38, PVC and PAC. Objective - Vital Signs Vital signs: Vital Signs Temp 98.5 F 05/14/21 07:00 Pulse 55 L 05/14/21 07:00 Resp 18 05/14/21 07:00 BP 161/73 05/14/21 07:00 Pulse Ox 97 05/14/21 07:00 Intake & Output 05/13/21 05/14/21 05/14/21 18:59 06:59 18:59 Weight 64.365 kg Other: Voiding Method Toilet Toilet # Voids 1 6 - Exam GENERAL: The patient is lying in bed and is not in acute distress. NEUROLOGICAL: Higher mental function: The patient is awake, alert, oriented to self, place and time. Patient is following commands. No aphasia and no neglect. Cranial nerves: The pupils are round, equal and reactive to light and accommodation. Visual delgado are full to confrontation throughout. Extraocular movement is intact no nystagmus is noted. Facial sensation is normal to touch throughout. The facial strength is normal throughout. Hearing is normal bilaterally to hand rub. Tongue is midline and moved [id number] without any difficulty. No dysarthria is noted. Shoulder shrug is normal bilaterally. Motor: The strength is 5 over 5 throughout. Normal tone and bulk. Cerebellum: Normal finger to nose heel to chin bilaterally. Sensation: Sensation is normal to touch throughout. Reflexes (right/left): 3+ throughout uppers while patellar are 2+ and ankles are 1+ bilaterally. Plantars are mute bilaterally. WORK-UP: * Orthostatics: Supine blood pressure of 132/62 with a heart rate of 55; sitting is 131/64 with a heart rate 59 and standing of 135/59 with a heart rate of 60. Orthostatic seems negative. * Schulte virus PCR was not detected. * TSH is 0.198 and the free T4 is 1.30. * Hemoglobin A1c is 5.3 * CT of the head is reported as new lacunar infarct in the anterior right internal capsule compared to old exam which was on 07/10/2020. Cerebral atrophy and chronic small vessel ischemia. No definite acute intracranial abnormality. I personally reviewed the CT of the head and I felt the patient had the lacunar infarct on the bilateral basal ganglia which looked remote but I do see what the reading radiologist noted over the right basal ganglia there is any new lesion not seen on the old CT of the head in 2019 but this lacunar infarcts is seems not acute or subacute. * CT cervical spine was reported as multiple level cervical fusion surgery over the C2 to C7. No fracture seen. * Routine EEG on 05/13/2021: Normal. There are no focal slowing, epileptiform discharges or seizure on the EEG. * Carotid duplex was reported as mildly elevated peak systolic velocity proximal left ICA about within normal and diastolic velocity and ICA/CCA ratio. Findings compatible with turbulent flow from that vessel velocity. No hemodynamically significant ICA stenosis on either side by Doppler criteria. * 2-D echo is reported as left ventricle wall thickness is normal. Ejection fraction of 55-60%. * EKG is reported as normal sinus rhythm. Cannot rule out anterior infarct, age undetermined. Abnormal EKG. - Labs CBC & Chem 7: 05/12/21 21:19 05/12/21 21:19 Labs: Abnormal Lab Results - Last 24 Hours (Table) 05/12/21 Range/Units 21:19 TSH 0.198 L (0.465-4.680) mIU/L Microbiology - Last 24 Hours (Table) 05/13/21 12:40 Urine Culture - Preliminary Urine,Voided Assessment and Plan Assessment: * Syncope: Unknown exact cause. Had an episode about 4 weeks ago where upon prolonged standing she felt her feet are numb and fell. Has sinus bradycardia (as low as 38) during this visit. Does not appear seizure. * Lacunar infarct over bilateral basal ganglia seems small vessel disease and there is at new lacunar seen on this image and not seen on the prior 06/2020 image (but is not acute or subacute). Likely small vessel disease. * Sinus bradycardia * History of cervical fusion between C2 to C7 in 2009 Like\ * Chronic lower back pain without radicular symptoms. * Hypertension Plan: Pending vitamin B12, folate and lipid panel Continue aspirin 81 mg daily and Lipitor 20 mg daily at bedtime for secondary stroke prophylaxis. Continue cardiac monitoring. Continue neuro checks Cardiology team is consulted. They ordered an event monitor for 30 days. Physical therapy and occupation therapy are consulted. Regarding this chronic low back pain recommend patient to follow-up with Orthopedic team/Neurologist as outpatient. We'll defer the rest of the medical management to the primary team Upon discharge recommend the patient to follow-up with a neurologist as an outpatient within 1-2 weeks. The plan is discussed with the patient. If the lab work-up is negative patient is clear from neurological perspective. River Tolbert MD Neuro-Hospitalist Time with Patient: Less than 30
--- NOTE | 2021-05-14 11:14 | P.PN ---
Subjective This is a pleasant 81 year old female with a past medical history of hypertension, scoliosis. She also [facility] bilateral lower extremity weakness that has been going on for a few months. She does not follow with a conche operator. We are consulted for syncope. Patient presents to the emergency department after a fall at home. Patient states she was walking bathroom, she got to the sink, and next thing she knew she woke up on the floor. She does think she passed out. Her heard her hit the floor, she was awake at that time. EMS was called. She states this has never occurred before. She denies lightheadedness, dizziness, headache, palpitations, chest pain, shortness of breath prior to the event. She states she continues to feel unsteady and "wobbly" on her feet. She denies any vision changes, loss of bowel or bladder. She denies any history of [place], stroke, coronary artery disease or diabetes. She denies use of tobacco or alcohol. Patient's home medications include hydrochlorothiazide 25 mg daily, losartan 100 mg daily, potassium chloride 10 mEq daily 05/14/21 Patient seen and examined at bedside, no acute distress. She denies any further lightheadedness, dizziness, no pre-syncope or syncope. Telemetry reviewed patient is maintaining sinus mechanism heart rate trends are 4850s, no arrhythmia or pauses noted. Echocardiogram revealed an EF 55-60% no significant wall motion abnormalities. Patient also underwent EEG which was reported as normal. Carotid ultrasound revealed no hemodynamically significant ICA stenosis. Patient is currently maintained on aspirin and milligrams daily, atorvastatin 20 mg nightly, hydrochlorothiazide 25 mg daily, losartan 100 mg daily. Patient has had her event monitor placed. PHYSICAL EXAMINATION Blood pressure 131/55, heart rate 55, afebrile, maintaining saturations on room air. CONSTITUTIONAL: No apparent distress. HEENT: Head is normocephalic. Pupils are equal, round. Sclerae anicteric. Mucous membranes of the mouth are moist. No JVD. No carotid bruit. CHEST EXAMINATION: Lungs are clear to auscultation. No chest wall tenderness is noted on palpation or with deep breathing. HEART EXAMINATION: Regular rate and rhythm. S1, S2 heard. No murmurs, gallops or rub. ABDOMEN: Soft, nontender. Positive bowel sounds. EXTREMITIES: 2+ peripheral pulses, no lower extremity edema and no calf tenderness. SKIN: warm, dry NEUROLOGIC EXAMINATION: Patient is awake, alert and oriented x3. ASSESSMENT Syncope Bilateral lower extremity weakness New lacunar infarct reported on head CT per Neurology Hypertension PLAN -Patient's syncopal episode possibly vasovagal, no arrhythmia noted on telemetry -Recommend 30 day event monitor prior to discharge to rule out arrhythmia -From a cardiology perspective, patient is hemodynamically stable, ok to discharge after event monitor is in place and follow up as an outpatient with Dr. Saravia. Thank you kindly for this consultation. Nurse Practitioner note has been reviewed, I agree with a documented findings and plan of care. Patient was seen and examined. Objective - Vital Signs Vital signs: Vital Signs Temp 98.5 F 05/14/21 07:00 Pulse 55 L 05/14/21 07:00 Resp 18 05/14/21 08:00 BP 161/73 05/14/21 07:00 Pulse Ox 97 05/14/21 07:00 Intake & Output 05/13/21 05/14/21 05/14/21 18:59 06:59 18:59 Intake Total 240 Balance 240 Weight 64.365 kg Intake: Oral 240 Other: Voiding Method Toilet Toilet Toilet # Voids 1 6 - Labs CBC & Chem 7: 05/12/21 21:19 05/12/21 21:19 Labs: Microbiology - Last 24 Hours (Table) 05/13/21 12:40 Urine Culture - Preliminary Urine,Voided
--- NOTE | 2021-05-14 23:28 | P.DS ---
Providers Date of admission: 05/12/21 22:45 Attending physician: Em White Consults: 05/12/21 22:45 Consult Physician Urgent Consulting Provider: Isac Zuñiga Consult Reason/Comments: syncope Do you want consulting provider notified?: Yes 05/12/21 22:46 Consult Physician Routine Consulting Provider: River Tolbert Consult Reason/Comments: syncope Do you want consulting provider notified?: Yes Primary care physician: Yuliana Marin Hospital Course: Diagnoses: syncope, most likely vasovagal syncope possible acute urinary tract infection , completely treated and repeat urine analysis is negative New lacunar infarct not seen in the old exam Hypertension Hyperlipidemia History of GERD History of anxiety and depression Hospital course: This is a pleasant 81 years old female with past medical history of GERD, hypertension, hyperlipidemia, anxiety and depression Yesterday evening 5-6 PM patient passed out after she woke up and went to go to the bathroom, she fell and hit her head and lower back until bone. She denies any dizziness or chest pain. No blurred vision or slurred speech. No weakness or numbness. She has some pain in her tailbone area. No diarrhea or vomiting. She stated in the floor to her came and call the ambulance for her. She is noticing also she is pain more frequently over the last 2 days but no discomfort or dysuria but with urgency.TIA was suspected and patient received ceftriaxone. Repeat urine analysis is negative and completely clear CT of the head and neck: No acute intracranial process. There is a new lacunar infarct anterior right internal capsule compared to old exam. ;no cervical fracture or dislocation, there are multilevel cervical fusion surgery. Patient has been evaluated by penology professor and neurologist. Workup has been negative. Patient is back to her baseline and on day of discharge she denies any symptoms. No headache or dizziness. No chest pain or dyspnea. No abdominal pain. No change in urine or bowel habits. No fever. She is complaining of from some pain at tailbone pain and she was referred to orthopedic as an outpatient and she agrees Patient was cleared for discharge by penology professor and neurologist Physical therapy and occupational recommended home health care which is provided for the patient Problems and management plan were discussed with the patient and at bedside and they verbalized understanding and acceptance Patient was found stable and can be discharged home in guarded prognosis however he needs follow-up as an outpatient. Patient was instructed to follow up with PCP Dr. Yuliana maurice within one week and patient agrees Patient also was instructed to follow-up with the neurologist in 1-[address] Champion or Dr. gary Shaikh to follow-up with penology professor Dr. Saravia in 2 weeks and patient agrees to call payment Also patient referred to the Dr. Perkins orthopedic floor her tailbone pain on 05/26 and she agrees with that appointment Physical exam Gen: patient is a AAOx3, no distress CVS: S1-S2, RRR, no murmur Lungs: B/L CTA, no wheezing Abdomen: soft, no distention, no tenderness, positive bowel sounds Extremity: no leg edema or induration Time spent more than 35 minutes Patient Condition at Discharge: Stable Plan - Discharge Summary Discharge Rx Participant: No New Discharge Prescriptions: New Aspirin 81 mg PO DAILY #30 tab Atorvastatin [Lipitor] 20 mg PO HS #30 tab Continue Omeprazole [PriLOSEC] 20 mg PO DAILY Cholecalciferol (Vitamin D3) [Vitamin D3 (125 MCG = 5,000 IU)] 125 mcg PO DAILY hydroCHLOROthiazide 25 mg PO DAILY Potassium Chloride ER [K-Dur 10] 10 meq PO DAILY Acetaminophen [Tylenol Extra Strength] 500 mg PO Q6H PRN PRN Reason: Pain Sennosides [Senokot] 8.6 mg PO BID PRN PRN Reason: Constipation Magnesium Chloride [Slow-Mag] 128 mg PO DAILY Calcium Carbonate/Vitamin D3 [Calcium 600 mg-D3 10 Mcg (400 Iu)] 1 cap PO DAILY Losartan Potassium 100 mg PO DAILY DULoxetine HCL [Cymbalta] 60 mg PO DAILY Discontinued Celecoxib [CeleBREX] 200 mg PO DAILY Discharge Medication List Omeprazole [PriLOSEC] 20 mg PO DAILY 06/16/16 [History] Acetaminophen [Tylenol Extra Strength] 500 mg PO Q6H PRN 05/12/21 [History] Calcium Carbonate/Vitamin D3 [Calcium 600 mg-D3 10 Mcg (400 Iu)] 1 cap PO DAILY 05/12/21 [History] Cholecalciferol (Vitamin D3) [Vitamin D3 (125 MCG = 5,000 IU)] 125 mcg PO DAILY 05/12/21 [History] DULoxetine HCL [Cymbalta] 60 mg PO DAILY 05/12/21 [History] Losartan Potassium 100 mg PO DAILY 05/12/21 [History] Magnesium Chloride [Slow-Mag] 128 mg PO DAILY 05/12/21 [History] Potassium Chloride ER [K-Dur 10] 10 meq PO DAILY 05/12/21 [History] Sennosides [Senokot] 8.6 mg PO BID PRN 05/12/21 [History] hydroCHLOROthiazide 25 mg PO DAILY 05/12/21 [History] Aspirin 81 mg PO DAILY #30 tab 05/14/21 [Rx] Atorvastatin [Lipitor] 20 mg PO HS #30 tab 05/14/21 [Rx] Follow up Appointment(s)/Referral(s): [facility], [NON-STAFF] - 1 Week Yajaira Molina MD [REFERRING] - 10 Days (neurologist ) Jennifer Perkins DO [Doctor of Osteopathic Medicine] - 05/26/21 9:45 am (orthopedic physician) Jb Saravia DO [STAFF PHYSICIAN] - 2 Weeks (Office will call patient with appointment time Has event monitor on) Yuliana Marin MD [Primary Care Provider] - 05/20/21 1:00 pm (Needs referral for Neurologist. Has possible neurologists listed.) Brendan Champion MD [Medical Doctor] - 10 Days (neurologist ) Elizabeth Molina MD [REFERRING] - 10 Days (neurologist ) Patient Instructions/Handouts: Heart Healthy Diet (DC), Syncope (DC), Ischemic Stroke (DC) Activity/Diet/Wound Care/Special Instructions: Heart healthy diet Activity is restricted till you see your doctor Discharge Disposition: HOME SELF-CARE
== END 2021-05-14 14:29 | disposition home or self-care (01) ==
LOC: EC 21:02 → 6NMEDSUR 22:45
PROVIDERS: ADMIT Internal Medicine; ATTEND Internal Medicine
DX: R55 Syncope and collapse (principal); Z20.822 Contact with and (suspected) exposure to COVID-19; E78.5 Hyperlipidemia, unspecified; F32.9 Major depressive disorder, single episode, unspecified; F41.9 Anxiety disorder, unspecified; M54.5 Low back pain; I10 Essential (primary) hypertension; I49.3 Ventricular premature depolarization; I73.9 Peripheral vascular disease, unspecified; M41.9 Scoliosis, unspecified; M47.9 Spondylosis, unspecified; M48.061 Spinal stenosis, lumbar region without neurogenic claudication; W19.XXXA Unspecified fall, initial encounter; Y92.009 Unspecified place in unspecified non-institutional (private) residence as the place of occurrence of the external cause; Z79.1 Long term (current) use of non-steroidal anti-inflammatories (NSAID); Z79.82 Long term (current) use of aspirin; Z79.899 Other long term (current) drug therapy; Z86.73 Personal history of transient ischemic attack (TIA), and cerebral infarction without residual deficits; Z87.891 Personal history of nicotine dependence; Z90.710 Acquired absence of both cervix and uterus; Z98.1 Arthrodesis status
CPT/HCPCS: 96361; 96372 ×3; 96374; 96375; 99285; 36415; 95816; 93005; 93306; 93270; 97162; 97166; 84439; 80061; 80053; 84443; 82607; 82746; 84484 ×2; 85025; 85610; 85730; 81003; 81001; 87086; 83036; 87635; 72170; 71045; 93880; 72125; 70450; G0378 ×3; J2270; J1644 ×2

== ENCOUNTER 2021-08-19 09:23 | Day surgery (SDC) | payer MEDICARE ==
[2021-08-12 16:03] VITALS: BMI 27.2
[~2021-08-19 09:23] MED LIST: SODIUM CHLORIDE 0.9% 1,000 ML IV SCH
[2021-08-19 10:13] VITALS: BP 179/77; PULSE 82; RESP 18; TEMP 98.3
--- NOTE | 2021-08-19 15:39 | P.EPPROC ---
- EP Procedure Note Electrophysiology Procedure Note: Diagnosis Syncope Baseline 12-lead EKG shows sinus rhythm normal LA narrow QRS normal ST segments Tilt table test per protocol Baseline blood pressure 162/73 mmHg, Baseline heart rate 54/min Patient's blood pressure remained elevated throughout the study between 157-70 290/81 mmHg Heart rates remained in the 50s and 60s She felt lightheaded throughout the study No evidence for neurocardiogenic syncope No evidence for dysautonomia Impression Normal 12-lead EKG Hypertension/elevated blood pressure readings
== END 2021-08-19 11:53 | disposition home or self-care (01) ==
LOC: CATHEP 09:23
PROVIDERS: ATTEND Internal Medicine Clinical Cardiac Electrophysiology
DX: R55 Syncope and collapse (principal); R03.0 Elevated blood-pressure reading, without diagnosis of hypertension; Z20.822 Contact with and (suspected) exposure to COVID-19
CPT/HCPCS: 87635; 93660

== ENCOUNTER → 2021-10-22 | Outpatient (CLI) | payer MEDICARE ==
--- NOTE | 2021-10-22 12:15 | MR ---
EXAMINATION TYPE: MR brain and iac wo/w con DATE OF EXAM: 10/22/2021 11:39 AM COMPARISON: NONE HISTORY: Hearing loss TECHNIQUE: Multiplanar and multispin-echo imaging of the brain was performed both before and after the administr ation of contrast. High-resolution images are obtained of the internal auditory canals performed uti lizing 6 mL intravenous Gadavist contrast. The ventricles, basal cisterns and sulci overlying the cerebral convexities are within mildly enlarge d not unusual for this patient's age group. There is no evidence for midline shift or mass effect. Acute intracranial hemorrhage or extra-axial collection is not evident. Moderate periventricular white matter ischemic demyelination noted. High-resolution imaging of the internal auditory canals fails demonstrate evidence for an enhancing a coustic schwannoma or cerebellopontine cistern angle mass. Following contrast administration, there is no evidence for pathologic enhancement or enhancing mass. The paranasal sinuses and mastoid air cells are well-aerated. IMPRESSION: 1. No evidence of acoustic schwannoma or cerebellopontine angle mass.
== END | disposition home or self-care (01) ==
LOC: RADMRIMAIN 10:30
PROVIDERS: ATTEND Otolaryngology
DX: H91.90 Unspecified hearing loss, unspecified ear (principal); H93.3X9 Disorders of unspecified acoustic nerve; H93.19 Tinnitus, unspecified ear
CPT/HCPCS: 70553; A9585

== ENCOUNTER → 2021-11-08 | Outpatient (CLI) | payer MEDICARE ==
--- NOTE | 2021-11-08 14:46 | MR ---
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 Congenital Fusing of spine. CONTRAST: Standard multiplanar, multisequence MRI departmental protocol images were obtained without contrast a nd with 6 mL intravenous Gadavist gadolinium contrast. There is some mild straightening of the cervical spine. There is fusion of the C3 and C4 vertebral aries dies. There is anterior and posterior spurring at C3-4. There is developmentally adequate spinal zeke l and canal measures 9.4 mm. There is mild thickening of the posterior longitudinal ligament and baptiste sverse ligament at the C1 level. The spinal canal measures 8 mm at the C1 level. Cervical cord shows no edema. There is some metal artifact from multilevel posterior fusion surgery. This is seen from le vels C3-T1 level. There is no evidence of focal bone destruction. Brainstem is intact. IMPRESSION: Multilevel fusion surgery. There is mild relative spinal stenosis at the C1 level.
--- NOTE | 2021-11-08 17:55 | MR ---
EXAMINATION TYPE: MR lumbar spine wo con DATE OF EXAM: 11/08/2021 COMPARISON: April 17, 2021 HISTORY: Back pain There is thoracolumbar dextroscoliosis and lumbar levoscoliosis. There is disc space narrowing in the mid and lower lumbar spine. Sacroiliac joints are intact. There is facet arthropathy and disc bulging posteriorly at L4-5 with resultant very severe lumbar spi nal stenosis. There is no lumbar paraspinal mass. No compression fracture. IMPRESSION: There is very severe lumbar spinal stenosis not changed compared to old exam at the L4-5 level. Scoli otic deformity without change. No compression fracture. Multilevel spondylotic changes.
== END | disposition home or self-care (01) ==
LOC: RADMRIMAIN 10:00
PROVIDERS: ATTEND Orthopaedic Surgery Orthopaedic Surgery of the Spine
DX: M48.061 Spinal stenosis, lumbar region without neurogenic claudication (principal); M48.02 Spinal stenosis, cervical region; M41.86 Other forms of scoliosis, lumbar region; M47.816 Spondylosis without myelopathy or radiculopathy, lumbar region; Z98.1 Arthrodesis status
CPT/HCPCS: 72148; 72156; A9585

== ENCOUNTER 2023-09-29 04:33 | Inpatient (IN) | payer MEDICARE ==
[2023-09-29 04:39] LABS: Glucose,Whole Blood 119 mg/dL (70-110)
--- NOTE | 2023-09-29 04:58 | ED ---
General Adult HPI <Eliseo Briscoe - Last Filed: 09/29/23 08:12> - General Source: patient, EMS Mode of arrival: EMS Limitations: no limitations - History of Present Illness -: minutes(s) Severity scale (1-10): 0 Consistency: now resolved Improves with: none Worsens with: none Treatments Prior to Arrival: none <Cisco Lawrence - Last Filed: 10/05/23 01:35> - General Chief complaint: Neuro Symptoms/Deficit Stated complaint: STROKE Time Seen by Provider: 09/29/23 04:42 - History of Present Illness Initial comments: This patient's is brought by EMS to have evaluation for concern about stroke or mental status change. The patient reportedly had been in bed, and woke up to use the bathroom. She states that she had difficult time walking. Family stated that they thought she was catatonic for a couple of minutes. She appeared to be awake but not responding to them. She then did have difficult time in trying to get up to the bathroom. By the time I see the patient, she states she feels like she is back at her baseline. She denies trouble with speech, swallowing, weakness or numbness of the extremities. She did not at any time have chest pain, dyspnea, diaphoresis, nausea or vomiting. (Cisco Lawrence) - Related Data Home Medications Medication Instructions Recorded Confirmed Omeprazole [PriLOSEC] 20 mg PO DAILY 06/16/16 09/29/23 Acetaminophen [Tylenol Extra 500 mg PO Q6H PRN 05/12/21 09/29/23 Strength] DULoxetine HCL [Cymbalta] 60 mg PO DAILY 05/12/21 09/29/23 Potassium Chloride ER [K-Dur 10] 10 meq PO DAILY 05/12/21 09/29/23 Ascorbic Acid [Vitamin C] 500 mg PO DAILY 09/29/23 09/29/23 Atorvastatin [Lipitor] 20 mg PO HS 09/29/23 09/29/23 Cholecalciferol [Vitamin D3 (25 25 mcg PO DAILY 09/29/23 09/29/23 Mcg = 1000 Iu)] Gabapentin 300 mg PO BID 09/29/23 09/29/23 Magnesium Oxide [Mag-Ox] 250 mg PO DAILY 09/29/23 09/29/23 traMADol HCL 50 mg PO BID PRN 09/29/23 09/29/23 Previous Rx's Medication Instructions Recorded Aspirin 81 mg PO DAILY 30 Days #30 tab 10/01/23 Oseltamivir 6Mg/ml Oral Susp 30 mg PO Q12HR 3 Days #6 each 10/01/23 [Tamiflu] levETIRAcetam [Keppra] 500 mg PO Q12HR 30 Days #60 tab 10/01/23 Allergies Allergy/AdvReac Type Severity Reaction Status Date / Time No Known Allergies Allergy Verified 08/19/21 10:06 Review of Systems ROS Other: All systems not noted in ROS Statement are negative. <Luis FelipeEliseo - Last Filed: 09/29/23 08:12> ROS Other: All systems not noted in ROS Statement are negative. Constitutional: Denies: fever, chills, weakness Eyes: Denies: vision change Respiratory: Denies: cough, dyspnea Cardiovascular: Denies: chest pain, palpitations, syncope Gastrointestinal: Denies: abdominal pain, nausea, vomiting, diarrhea Genitourinary: Denies: dysuria, hematuria Musculoskeletal: Denies: back pain Skin: Denies: rash Neurological: Reports: confusion. Denies: headache, weakness, numbness <HowardCisco - Last Filed: 10/05/23 01:35> ROS Statement: Those systems with pertinent positive or pertinent negative responses have been documented in the HPI. Past Medical History Past Medical History: GERD/Reflux, Hyperlipidemia, Hypertension Additional Past Medical History / Comment(s): scoliosis, balance issues . History of Any Multi-Drug Resistant Organisms: None Reported Past Surgical History: Appendectomy, Hysterectomy Additional Past Surgical History / Comment(s): neck surgery Past Anesthesia/Blood Transfusion Reactions: No Reported Reaction Past Psychological History: Anxiety, Depression Smoking Status: Former smoker <HowardCisco - Last Filed: 10/05/23 01:35> General Exam Limitations: no limitations General appearance: alert, in no apparent distress Head exam: Present: atraumatic, normocephalic Eye exam: Present: normal appearance. Absent: scleral icterus, conjunctival injection ENT exam: Present: normal oropharynx Neck exam: Present: normal inspection Respiratory exam: Present: normal lung sounds bilaterally. Absent: respiratory distress, wheezes, rales, rhonchi, stridor Cardiovascular Exam: Present: regular rate, normal rhythm, normal heart sounds. Absent: systolic murmur, diastolic murmur, rubs, gallop GI/Abdominal exam: Present: soft. Absent: distended, tenderness, guarding, rebound, rigid, mass Extremities exam: Present: normal inspection, normal capillary refill. Absent: pedal edema, calf tenderness Back exam: Present: normal inspection. Absent: CVA tenderness (R), CVA tenderness (L) Neurological exam: Present: alert, oriented X3, CN II-XII intact. Absent: motor sensory deficit Skin exam: Present: warm, dry, intact, normal color. Absent: rash <Cisco Lawrence - Last Filed: 10/05/23 01:35> Course Vital Signs 09/29/23 09/29/23 09/29/23 04:34 05:22 06:00 Temperature 98.3 F Pulse Rate 74 64 72 Respiratory 16 18 16 Rate Blood Pressure 110/65 117/61 107/65 O2 Sat by Pulse 96 94 L 95 Oximetry 09/29/23 09/29/23 09/29/23 07:31 09:54 13:00 Temperature Pulse Rate 70 74 74 Respiratory 18 18 18 Rate Blood Pressure 115/56 119/60 100/41 O2 Sat by Pulse 96 95 96 Oximetry Medical Decision Making - Lab Data Result diagrams: 09/29/23 04:58 09/29/23 04:58 <Eliseo Briscoe - Last Filed: 09/29/23 08:12> - Lab Data Result diagrams: 09/30/23 05:52 09/30/23 05:52 <Cisco Lawrence - Last Filed: 10/05/23 01:35> - Medical Decision Making Was pt. sent in by a medical professional or institution ([facility], [facility], urgent care, hospital, or snf...) When possible be specific @ -No Did you speak to anyone other than the patient for history (EMS, parent, family, police, friend...)? What history was obtained from this source @ -Family is present and helps provide majority of history as patient does not recall this episodes Did you review nursing and triage notes (agree or disagree)? Why? @ -I reviewed and agree with nursing and triage notes Were old charts reviewed (outside hosp., previous admission, EMS record, old EKG, old radiological studies, urgent care reports/EKG's, snf records)? Report findings @ -Previous x-ray reviewed Differential Diagnosis (chest pain, altered mental status, abdominal pain women, abdominal pain men, vaginal bleeding, weakness, fever, dyspnea, syncope, headache, dizziness, GI bleed, back pain, seizure, CVA, palpatations, mental health, musculoskeletal)? @ -Differential Weakness: Hypoglycemia, shock, sepsis, hyponatremia, anemia, infection, VA, ETOH, adverse medicine reaction, overdose, stroke, this is not meant to be an all-inclusive list. EKG interpreted by me (3pts min.). @ -As above X-rays interpreted by me (1pt min.). @ -Chest x-ray shows no acute process CT interpreted by me (1pt min.). @ -CT brain shows degenerative changes U/S interpreted by me (1pt. min.). @ -None done What testing was considered but not performed or refused? (CT, X-rays, U/S, labs)? Why? @ -None What meds were considered but not given or refused? Why? @ -None Did you discuss the management of the patient with other professionals (professionals i.e. , PA, [employer], lab, RT, psych nurse, manager social services, cardiovascular technician, teacher, event security officer, rn case manager hospice)? Give summary @ -EM, will admit covering Dr. Marin Was smoking cessation discussed for >3mins.? @ -No Was critical care preformed (if so, how long)? @ -No Were there social determinants of health that impacted care today? How? (Homelessness, low income, unemployed, alcoholism, drug addiction, transportation, low edu. Level, literacy, decrease access to med. care, senior care, rehab)? @ -No Was there de-escalation of care discussed even if they declined (Discuss DNR or withdrawal of care, Hospice)? DNR status @ -No What co-morbidities impacted this encounter? (DM, HTN, Smoking, COPD, CAD, Cancer, CVA, ARF, Chemo, Hep., AIDS, mental health diagnosis, sleep apnea, morbid obesity)? @ -None Was patient admitted / discharged? Hospital course, mention meds given and route, prescriptions, significant lab abnormalities, going to OR and other per tinent info. @ -Patient presents with unresponsive episodes yesterday and early this morning. Patient had difficulty walking following episode this morning. At this time patient is alert and oriented x 3. No focal deficits. Patient will be admitted with neurology evaluation. Undiagnosed new problem with uncertain prognosis? @ -No Drug Therapy requiring intensive monitoring for toxicity (Heparin, Nitro, Insulin, Cardizem)? @ -No Were any procedures done? @ -No Diagnosis/symptom? @ -Unresponsive episode Acute, or Chronic, or Acute on Chronic? @ -Acute Uncomplicated (without systemic symptoms) or Complicated (systemic symptoms)? @ -Default Side effects of treatment? @ -No Exacerbation, Progression, or Severe Exacerbation? @ -No Poses a threat to life or bodily function? How? (Chest pain, USA, VA, pneumonia, PE, COPD, DKA, ARF, appy, cholecystitis, CVA, Diverticulitis, Homicidal, Suicidal, threat to staff... and all critical care pts) @ -No (Eliseo Briscoe) - Lab Data Lab Results 09/29/23 09/29/23 09/29/23 Range/Units 04:38 04:58 04:58 WBC 6.8 (3.8-10.6) k/uL RBC 4.85 (3.80-5.40) m/uL Hgb 14.7 (11.4-16.0) gm/dL Hct 44.1 (34.0-46.0) % MCV 90.9 (80.0-100.0) fL MCH 30.2 (25.0-35.0) pg MCHC 33.3 (31.0-37.0) g/dL RDW 12.6 (11.5-15.5) % Plt Count 161 (150-450) k/uL MPV 8.6 Immature Gran % (Auto) % Absolute Nucleated RBC % Neutrophils % 76 % Lymphocytes % 16 % Monocytes % 6 % Eosinophils % 0 % Basophils % 1 % Immature Gran # (0.00-0.04) X 10*3/uL Neutrophils # 5.2 (1.3-7.7) k/uL Lymphocytes # 1.1 (1.0-4.8) k/uL Monocytes # 0.4 (0-1.0) k/uL Eosinophils # 0.0 (0-0.7) k/uL Basophils # 0.0 (0-0.2) k/uL NRBC/100 WBC Diff (0.00-0.01) X 10*3/uL PT 10.9 (10.0-12.5) sec INR 1.0 (<1.2) APTT 25.5 (22.0-30.0) sec Sodium (137-145) mmol/L Potassium (3.5-5.1) mmol/L Chloride (98-107) mmol/L Carbon Dioxide (22-30) mmol/L Anion Gap mmol/L BUN (7-17) mg/dL Creatinine (0.52-1.04) mg/dL Est GFR (CKD-EPI) (>=60) Est GFR (CKD-EPI)AfAm (>60 ml/min/1.73 sqM) Est GFR (CKD-EPI)NonAf (>60 ml/min/1.73 sqM) BUN/Creatinine Ratio (12.00-20.00) Ratio Glucose (74-99) mg/dL POC Glucose (mg/dL) 119 H (70-110) mg/dL POC Glu Skein Yarn Dyer ID Bishnu Evans Calcium (8.4-10.2) mg/dL Total Bilirubin (0.2-1.3) mg/dL AST (14-36) U/L ALT (4-34) U/L Alkaline Phosphatase (38-126) U/L Ammonia (<30) umol/L Creatine Kinase (30-135) U/L Troponin I (0.000-0.034) ng/mL Total Protein (6.3-8.2) g/dL Albumin (3.5-5.0) g/dL Globulin (1.6-3.3) g/dL Albumin/Globulin Ratio (1.60-3.17) Ratio Vitamin B12 (200.0-944.0) pg/mL Folate (4.40-31.00) ng/mL TSH (0.350-5.500) UIU/ML Urine Color Urine Appearance (Clear) Urine pH (5.0-8.0) Ur Specific [place] (1.001-1.035) Urine Protein (Negative) Urine Glucose (UA) (Negative) Urine Ketones (Negative) Urine Blood (Negative) Urine Nitrite (Negative) Urine Bilirubin (Negative) Urine Urobilinogen (<2.0) mg/dL Ur Leukocyte Esterase (Negative) Urine RBC (0-5) /hpf Urine WBC (0-5) /hpf Ur Squamous Epith Cells (0-4) /hpf Urine Mucus (None) /hpf Influenza Type A (PCR) (Not Detectd) Influenza Type B (PCR) (Not Detectd) RSV (PCR) (Not Detectd) SARS-CoV-2 (PCR) (Not Detectd) 09/29/23 09/29/23 09/29/23 Range/Units 04:58 04:58 08:30 WBC (3.8-10.6) k/uL RBC (3.80-5.40) m/uL Hgb (11.4-16.0) gm/dL Hct (34.0-46.0) % MCV (80.0-100.0) fL MCH (25.0-35.0) pg MCHC (31.0-37.0) g/dL RDW (11.5-15.5) % Plt Count (150-450) k/uL MPV Immature Gran % (Auto) % Absolute Nucleated RBC % Neutrophils % % Lymphocytes % % Monocytes % % Eosinophils % % Basophils % % Immature Gran # (0.00-0.04) X 10*3/uL Neutrophils # (1.3-7.7) k/uL Lymphocytes # (1.0-4.8) k/uL Monocytes # (0-1.0) k/uL Eosinophils # (0-0.7) k/uL Basophils # (0-0.2) k/uL NRBC/100 WBC Diff (0.00-0.01) X 10*3/uL PT (10.0-12.5) sec INR (<1.2) APTT (22.0-30.0) sec Sodium 130 L (137-145) mmol/L Potassium 3.9 (3.5-5.1) mmol/L Chloride 98 (98-107) mmol/L Carbon Dioxide 25 (22-30) mmol/L Anion Gap 7 mmol/L BUN 16 (7-17) mg/dL Creatinine 0.64 (0.52-1.04) mg/dL Est GFR (CKD-EPI) (>=60) Est GFR (CKD-EPI)AfAm >90 (>60 ml/min/1.73 sqM) Est GFR (CKD-EPI)NonAf 83 (>60 ml/min/1.73 sqM) BUN/Creatinine Ratio (12.00-20.00) Ratio Glucose 127 H (74-99) mg/dL POC Glucose (mg/dL) (70-110) mg/dL POC Glu Skein Yarn Dyer ID Calcium 8.7 (8.4-10.2) mg/dL Total Bilirubin 0.7 (0.2-1.3) mg/dL AST 33 (14-36) U/L ALT 19 (4-34) U/L Alkaline Phosphatase 70 (38-126) U/L Ammonia (<30) umol/L Creatine Kinase 112 (30-135) U/L Troponin I 0.015 0.021 (0.000-0.034) ng/mL Total Protein 6.8 (6.3-8.2) g/dL Albumin 3.9 (3.5-5.0) g/dL Globulin (1.6-3.3) g/dL Albumin/Globulin Ratio (1.60-3.17) Ratio Vitamin B12 (200.0-944.0) pg/mL Folate (4.40-31.00) ng/mL TSH (0.350-5.500) UIU/ML Urine Color Urine Appearance (Clear) Urine pH (5.0-8.0) Ur Specific [place] (1.001-1.035) Urine Protein (Negative) Urine Glucose (UA) (Negative) Urine Ketones (Negative) Urine Blood (Negative) Urine Nitrite (Negative) Urine Bilirubin (Negative) Urine Urobilinogen (<2.0) mg/dL Ur Leukocyte Esterase (Negative) Urine RBC (0-5) /hpf Urine WBC (0-5) /hpf Ur Squamous Epith Cells (0-4) /hpf Urine Mucus (None) /hpf Influenza Type A (PCR) (Not Detectd) Influenza Type B (PCR) (Not Detectd) RSV (PCR) (Not Detectd) SARS-CoV-2 (PCR) (Not Detectd) 09/29/23 09/29/23 09/29/23 Range/Units 11:37 13:36 13:48 WBC (3.8-10.6) k/uL RBC (3.80-5.40) m/uL Hgb (11.4-16.0) gm/dL Hct (34.0-46.0) % MCV (80.0-100.0) fL MCH (25.0-35.0) pg MCHC (31.0-37.0) g/dL RDW (11.5-15.5) % Plt Count (150-450) k/uL MPV Immature Gran % (Auto) % Absolute Nucleated RBC % Neutrophils % % Lymphocytes % % Monocytes % % Eosinophils % % Basophils % % Immature Gran # (0.00-0.04) X 10*3/uL Neutrophils # (1.3-7.7) k/uL Lymphocytes # (1.0-4.8) k/uL Monocytes # (0-1.0) k/uL Eosinophils # (0-0.7) k/uL Basophils # (0-0.2) k/uL NRBC/100 WBC Diff (0.00-0.01) X 10*3/uL PT (10.0-12.5) sec INR (<1.2) APTT (22.0-30.0) sec Sodium (137-145) mmol/L Potassium (3.5-5.1) mmol/L Chloride (98-107) mmol/L Carbon Dioxide (22-30) mmol/L Anion Gap mmol/L BUN (7-17) mg/dL Creatinine (0.52-1.04) mg/dL Est GFR (CKD-EPI) (>=60) Est GFR (CKD-EPI)AfAm (>60 ml/min/1.73 sqM) Est GFR (CKD-EPI)NonAf (>60 ml/min/1.73 sqM) BUN/Creatinine Ratio (12.00-20.00) Ratio Glucose (74-99) mg/dL POC Glucose (mg/dL) (70-110) mg/dL POC Glu Skein Yarn Dyer ID Calcium (8.4-10.2) mg/dL Total Bilirubin (0.2-1.3) mg/dL AST (14-36) U/L ALT (4-34) U/L Alkaline Phosphatase (38-126) U/L Ammonia (<30) umol/L Creatine Kinase (30-135) U/L Troponin I 0.017 (0.000-0.034) ng/mL Total Protein (6.3-8.2) g/dL Albumin (3.5-5.0) g/dL Globulin (1.6-3.3) g/dL Albumin/Globulin Ratio (1.60-3.17) Ratio Vitamin B12 (200.0-944.0) pg/mL Folate (4.40-31.00) ng/mL TSH (0.350-5.500) UIU/ML Urine Color Yellow Urine Appearance Clear (Clear) Urine pH 6.0 (5.0-8.0) Ur Specific [place] 1.022 (1.001-1.035) Urine Protein Trace H (Negative) Urine Glucose (UA) Negative (Negative) Urine Ketones Negative (Negative) Urine Blood Small H (Negative) Urine Nitrite Negative (Negative) Urine Bilirubin Negative (Negative) Urine Urobilinogen <2.0 (<2.0) mg/dL Ur Leukocyte Esterase Negative (Negative) Urine RBC 19 H (0-5) /hpf Urine WBC 3 (0-5) /hpf Ur Squamous Epith Cells 1 (0-4) /hpf Urine Mucus Few H (None) /hpf Influenza Type A (PCR) Detected A (Not Detectd) Influenza Type B (PCR) Not Detected (Not Detectd) RSV (PCR) Not Detected (Not Detectd) SARS-CoV-2 (PCR) Not Detected (Not Detectd) 09/29/23 09/29/23 09/29/23 Range/Units 14:10 14:10 14:10 WBC (3.8-10.6) k/uL RBC (3.80-5.40) m/uL Hgb (11.4-16.0) gm/dL Hct (34.0-46.0) % MCV (80.0-100.0) fL MCH (25.0-35.0) pg MCHC (31.0-37.0) g/dL RDW (11.5-15.5) % Plt Count (150-450) k/uL MPV Immature Gran % (Auto) % Absolute Nucleated RBC % Neutrophils % % Lymphocytes % % Monocytes % % Eosinophils % % Basophils % % Immature Gran # (0.00-0.04) X 10*3/uL Neutrophils # (1.3-7.7) k/uL Lymphocytes # (1.0-4.8) k/uL Monocytes # (0-1.0) k/uL Eosinophils # (0-0.7) k/uL Basophils # (0-0.2) k/uL NRBC/100 WBC Diff (0.00-0.01) X 10*3/uL PT (10.0-12.5) sec INR (<1.2) APTT (22.0-30.0) sec Sodium (137-145) mmol/L Potassium (3.5-5.1) mmol/L Chloride (98-107) mmol/L Carbon Dioxide (22-30) mmol/L Anion Gap mmol/L BUN (7-17) mg/dL Creatinine (0.52-1.04) mg/dL Est GFR (CKD-EPI) (>=60) Est GFR (CKD-EPI)AfAm (>60 ml/min/1.73 sqM) Est GFR (CKD-EPI)NonAf (>60 ml/min/1.73 sqM) BUN/Creatinine Ratio (12.00-20.00) Ratio Glucose (74-99) mg/dL POC Glucose (mg/dL) (70-110) mg/dL POC Glu Skein Yarn Dyer ID Calcium (8.4-10.2) mg/dL Total Bilirubin (0.2-1.3) mg/dL AST (14-36) U/L ALT (4-34) U/L Alkaline Phosphatase (38-126) U/L Ammonia <9 (<30) umol/L Creatine Kinase (30-135) U/L Troponin I (0.000-0.034) ng/mL Total Protein (6.3-8.2) g/dL Albumin (3.5-5.0) g/dL Globulin (1.6-3.3) g/dL Albumin/Globulin Ratio (1.60-3.17) Ratio Vitamin B12 787.0 (200.0-944.0) pg/mL Folate 19.20 (4.40-31.00) ng/mL TSH 1.640 (0.350-5.500) UIU/ML Urine Color Urine Appearance (Clear) Urine pH (5.0-8.0) Ur Specific [place] (1.001-1.035) Urine Protein (Negative) Urine Glucose (UA) (Negative) Urine Ketones (Negative) Urine Blood (Negative) Urine Nitrite (Negative) Urine Bilirubin (Negative) Urine Urobilinogen (<2.0) mg/dL Ur Leukocyte Esterase (Negative) Urine RBC (0-5) /hpf Urine WBC (0-5) /hpf Ur Squamous Epith Cells (0-4) /hpf Urine Mucus (None) /hpf Influenza Type A (PCR) (Not Detectd) Influenza Type B (PCR) (Not Detectd) RSV (PCR) (Not Detectd) SARS-CoV-2 (PCR) (Not Detectd) 09/30/23 09/30/23 Range/Units 05:52 05:52 WBC 4.03 L (3.8-10.6) k/uL RBC 4.61 (3.80-5.40) m/uL Hgb 14.0 (11.4-16.0) gm/dL Hct 41.0 (34.0-46.0) % MCV 88.9 (80.0-100.0) fL MCH 30.4 (25.0-35.0) pg MCHC 34.1 (31.0-37.0) g/dL RDW 13.2 (11.5-15.5) % Plt Count 164 (150-450) k/uL MPV 11.1 Immature Gran % (Auto) 0.20 % Absolute Nucleated RBC 0 % Neutrophils % 56.8 % Lymphocytes % 30.3 % Monocytes % 11.7 % Eosinophils % 0.5 % Basophils % 0.5 % Immature Gran # 0.01 (0.00-0.04) X 10*3/uL Neutrophils # 2.29 (1.3-7.7) k/uL Lymphocytes # 1.22 (1.0-4.8) k/uL Monocytes # 0.47 (0-1.0) k/uL Eosinophils # 0.02 L (0-0.7) k/uL Basophils # 0.02 (0-0.2) k/uL NRBC/100 WBC Diff 0 (0.00-0.01) X 10*3/uL PT (10.0-12.5) sec INR (<1.2) APTT (22.0-30.0) sec Sodium 134 L (137-145) mmol/L Potassium 3.8 (3.5-5.1) mmol/L Chloride 99 (98-107) mmol/L Carbon Dioxide 24.4 (22-30) mmol/L Anion Gap 10.60 mmol/L BUN 15.1 (7-17) mg/dL Creatinine 0.7 (0.52-1.04) mg/dL Est GFR (CKD-EPI) 86 (>=60) Est GFR (CKD-EPI)AfAm (>60 ml/min/1.73 sqM) Est GFR (CKD-EPI)NonAf (>60 ml/min/1.73 sqM) BUN/Creatinine Ratio 21.57 H (12.00-20.00) Ratio Glucose 101 (74-99) mg/dL POC Glucose (mg/dL) (70-110) mg/dL POC Glu Skein Yarn Dyer ID Calcium 8.9 (8.4-10.2) mg/dL Total Bilirubin 0.4 (0.2-1.3) mg/dL AST 30 (14-36) U/L ALT 17 (4-34) U/L Alkaline Phosphatase 66 (38-126) U/L Ammonia (<30) umol/L Creatine Kinase (30-135) U/L Troponin I (0.000-0.034) ng/mL Total Protein 5.8 L (6.3-8.2) g/dL Albumin 3.6 L (3.5-5.0) g/dL Globulin 2.2 (1.6-3.3) g/dL Albumin/Globulin Ratio 1.64 (1.60-3.17) Ratio Vitamin B12 (200.0-944.0) pg/mL Folate (4.40-31.00) ng/mL TSH (0.350-5.500) UIU/ML Urine Color Urine Appearance (Clear) Urine pH (5.0-8.0) Ur Specific [place] (1.001-1.035) Urine Protein (Negative) Urine Glucose (UA) (Negative) Urine Ketones (Negative) Urine Blood (Negative) Urine Nitrite (Negative) Urine Bilirubin (Negative) Urine Urobilinogen (<2.0) mg/dL Ur Leukocyte Esterase (Negative) Urine RBC (0-5) /hpf Urine WBC (0-5) /hpf Ur Squamous Epith Cells (0-4) /hpf Urine Mucus (None) /hpf Influenza Type A (PCR) (Not Detectd) Influenza Type B (PCR) (Not Detectd) RSV (PCR) (Not Detectd) SARS-CoV-2 (PCR) (Not Detectd) Disposition Is patient prescribed a controlled substance at d/c from ED?: No Time of Disposition: 08:14 <Eliseo Briscoe - Last Filed: 09/29/23 08:12> <Cisco Lawrence - Last Filed: 10/05/23 01:35> Clinical Impression: Unresponsive episode Disposition: ADMITTED IP TO THIS HOSP Condition: Stable
[2023-09-29 05:16] LABS: Basophils % (A) 1 %; Eosinophils % (A) 0 %; HCT 44.1 % (34.0-46.0); HGB 14.7 gm/dL (11.4-16.0); Lymphocytes # (A) 1.1 k/uL (1.0-4.8); Lymphocytes % (A) 16 %; MCH 30.2 pg (25.0-35.0); MCHC 33.3 g/dL (31.0-37.0); MCV 90.9 fL (80.0-100.0); Mean Platelet Volume 8.6; Monocytes # (A) 0.4 k/uL (0-1.0); Monocytes % (A) 6 %; Neutrophils # (A) 5.2 k/uL (1.3-7.7); Neutrophils % (A) 76 %; Platelet Count 161 k/uL (150-450); RBC 4.85 m/uL (3.80-5.40); RDW 12.6 % (11.5-15.5); WBC 6.8 k/uL (3.8-10.6)
[2023-09-29 05:28] LABS: ALT 19 U/L (4-34); AST 33 U/L (14-36); African American GFR (CKD) >90 (>60 ml/min/1.73 sqM); Albumin 3.9 g/dL (3.5-5.0); Alkaline Phosphatase 70 U/L (38-126); Anion Gap 7 mmol/L; Blood Urea Nitrogen 16 mg/dL (7-17); Calcium 8.7 mg/dL (8.4-10.2); Carbon Dioxide 25 mmol/L (22-30); Chloride 98 mmol/L (98-107); Creatine Kinase 112 U/L (30-135); Glucose 127 mg/dL (74-99); Non-African American GFR(CKD) 83 (>60 ml/min/1.73 sqM); Sodium 130 mmol/L (137-145); Total Bilirubin 0.7 mg/dL (0.2-1.3); Total Protein 6.8 g/dL (6.3-8.2)
[2023-09-29 05:50] LABS: Partial Thromboplastin Time 25.5 sec (22.0-30.0); Prothrombin Time 10.9 sec (10.0-12.5)
[2023-09-29 06:11] LABS: Potassium 3.9 mmol/L (3.5-5.1)
[2023-09-29] MEDS: SODIUM CHLORIDE 0.9% 500 ML 500 ML IV STA (07:30)
--- NOTE | 2023-09-29 07:44 | CT ---
EXAMINATION TYPE: CT brain wo con DATE OF EXAM: 09/29/2023 COMPARISON: 05/12/2021 HISTORY: 83-year-old female neurologic deficit, acute, stroke suspected, Per RN possible TIA. No prio r HX. TECHNIQUE: Examination was done in axial plane without intravenous contrast. Coronal and sagittal r econstructions performed. CT DLP: 1167.4 mGycm Automated exposure control for dose reduction was used. FINDINGS: There is no evidence of acute intracranial hemorrhage, acute ischemic changes, mass, mass-effect, or extra-axial fluid collection. There is no effacement of cerebral sulci or basal subarachnoid cister ns. There is no midline shift. Graham-white matter distinction is preserved. Mild ventricular prominence is unchanged, likely secondary to central cerebral atrophy. Moderate to s evere patchy and confluent white matter hypodensities in both cerebral hemispheres, relatively simila r in 2020. Small air-fluid levels right sphenoid sinus and bilateral maxillary sinuses. Moderate mucosal thicken ing ethmoid air cells. Orbits and globes are intact. Mastoid air cells are well pneumatized. Slight r ightward nasal septal deviation. IMPRESSION: 1. Similar moderate to severe burden of chronic small vessel ischemic disease. Mild ventricular promi nence likely relates to central cerebral atrophy and is also similar. No acute intracranial abnormali ty seen. 2. Given scattered paranasal sinus air-fluid levels, correlate for possible acute sinusitis.
--- NOTE | 2023-09-29 07:59 | XR ---
EXAMINATION TYPE: XR chest 1V portable DATE OF EXAM: 09/29/2023 Comparison: 05/12/2021 Clinical History: 83-year-old female confusion, TIA suspected, altered mental status Findings: Partially visualized posterior cervical fusion hardware. Heart mildly enlarged. Rightward patient rot ation IS unremarkable cardiomediastinal contours. Mild interstitial prominence of the chronic appeara nce. No phill consolidation or pleural effusion is seen. Impression: Mild cardiomegaly. Portable exam further limited by patient rotation. No definite acute process.
[2023-09-29] MEDS ORDERED: NALOXONE 0.4 MG/ML 1 ML VIAL IV PRN (08:14)
[2023-09-29] MEDS: SODIUM CHLORIDE 0.9% 1,000 ML IV SCH ×3 (08:51→13:42)
[2023-09-29] MEDS ORDERED: traMADol 50 MG TAB PO PRN (09:05)
[2023-09-29] MEDS ORDERED: ACETAMINOPHEN TAB 500 MG TAB PO PRN (09:05)
[2023-09-29] MEDS ORDERED: NON FORMULARY DRUG (Losartan Potassium [Losartan Potassium] 100 MG Tablet) PO SCH (09:15)
[2023-09-29] MEDS ORDERED: hydroCHLOROthiazide 25 MG TAB PO SCH (09:15)
[2023-09-29] MEDS: PANTOPRAZOLE 40 MG TABLET PO SCH (09:55)
[2023-09-29] MEDS: amLODIPine 2.5 MG TAB PO SCH (09:55)
[2023-09-29] MEDS: ASCORBIC ACID 500 MG TAB PO SCH (09:55)
[2023-09-29] MEDS: DULoxetine HCL 60 MG CAPSULE.DR PO SCH (09:56)
[2023-09-29] MEDS: MAGNESIUM OXIDE 400 MG TAB PO SCH (09:56)
[2023-09-29] MEDS: CHOLECALCIFEROL 25 MCG (1000 IU) TABLET PO SCH (09:56)
--- NOTE | 2023-09-29 12:25 | HP ---
HISTORY AND PHYSICAL CHIEF COMPLAINT: Change in mental status. 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 The patient has a period of unresponsiveness and maybe some catatonia from the family and the patient was admitted for further evaluation and treatment. CT scan of the brain showed chronic small-vessel ischemia. Otherwise, the patient is unable to give a coherent history. Most of the history is taken by discussion with staff as well as discussion with the family members at the bedside. The patient and endorse not feeling well prior to this according to the family. There is no history of any fever, rigors, or chills. PAST MEDICAL HISTORY: Reviewed, hypertension, hyperlipidemia, rest of the history and rest of the chart is also reviewed. HOME MEDICATIONS: Reviewed include tramadol, CBD cream, dose and rest of medications reviewed. ALLERGIES: None. FAMILY HISTORY: Could not be taken. SOCIAL HISTORY: Could not be taken. REVIEW OF SYSTEMS: Could not be taken. PHYSICAL EXAMINATION: VITAL SIGNS: Patient is stuporous, pulse 72, blood pressure , respirations 16. HEENT: Conjunctivae normal. NECK: No jugular venous distention. CARDIOVASCULAR: S1, S2. RESPIRATIONS: Diminished at the bases, few scattered rhonchi. ABDOMEN: Soft, nontender. LEGS: No edema, no swelling. NERVOUS SYSTEM: Could not be examined completely. JOINTS: No active deforming arthropathy. LABORATORY DATA: Reviewed. ASSESSMENT: 1. Change in mental status, possible acute stroke. 2. Rule out seizure disorder. 3. Hypertension. 4. Hyperlipidemia. 5. History of anxiety, depression. 6. Multiple medical issues. RECOMMENDATIONS AND DISCUSSION: 1. This 83-year-old woman presented with multiple complex medical issues. 2. Etiology of the unresponsiveness is unknown at this time. I would recommend neurology consultation and complete stroke workup to rule out the possibility of acute stroke. I would also recommend EEG to rule out the possibility of seizure. Blood cultures were obtained. Home medications will be continued. We will check Neurontin levels. Otherwise, the prognosis is guarded because of the multiple complex medical issues and further recommendations to follow, see orders for details. Discussed with family. We will obtain a PT OT evaluation and discuss possible ECF rehab also once the patient is stabilized. MMODL / IJN: [id number] /
--- NOTE | 2023-09-29 13:08 | P.CNNES ---
History of Present Illness Consult date: 09/29/23 Requesting physician: Eliseo Briscoe Reason for Consult: unresponsive episode History of Present Illness: This is an 83-year-old woman presented emergency department because of altered mental status. Patient is accompanied with her family members. Patient stated that the she went to bed yesterday at 10p.m. and one the at 5 AM today her was having a hard time getting her up and she stated that she became awake but just had a tough time getting up out of bed. She denies of any focal weakness, numbness, any headache, any visual disturbance, any difficulty getting her words out. Denies any history of stroke or TIAs in the past. Denies any history of true fibrillation. She's feeling better today. Denies any sick contacts or any fevers recently. Denies any history of seizures. Some of the workup during his hospital visit consisted of: Patient is afebrile. CBC with differential is unremarkable Sodium is 1:30, BUN and creatinine is normal, calcium is 8.7, initial serum glucose is 127 CK level as 112 EKG is reported as sinus rhythm with short WI interval. Nonspecific ST and T- wave abnormality. CT of the head is reported as similar moderate to severe burden of chronic small vessel ischemic disease. Mild ventricular prominence likely related to central cerebral atrophy also is also similar. No acute intracranial abnormality seen. Given scattered paranasal sinus air-fluid levels, correlate for possible acute sinusitis. I personally reviewed the CT and agree with the report. Review of Systems Review of system: The 12 point system was reviewed and apparent positive and negative per HPI. Past Medical History Past Medical History: GERD/Reflux, Hyperlipidemia, Hypertension Additional Past Medical History / Comment(s): scoliosis, balance issues . History of Any Multi-Drug Resistant Organisms: None Reported Past Surgical History: Appendectomy, Hysterectomy Additional Past Surgical History / Comment(s): neck surgery Past Anesthesia/Blood Transfusion Reactions: No Reported Reaction Past Psychological History: Anxiety, Depression Smoking Status: Former smoker Medications and Allergies Home Medications Medication Instructions Recorded Confirmed Type Omeprazole [PriLOSEC] 20 mg PO DAILY 06/16/16 09/29/23 History Acetaminophen [Tylenol Extra 500 mg PO Q6H PRN 05/12/21 09/29/23 History Strength] DULoxetine HCL [Cymbalta] 60 mg PO DAILY 05/12/21 09/29/23 History Losartan Potassium 100 mg PO DAILY 05/12/21 09/29/23 History Potassium Chloride ER [K-Dur 10] 10 meq PO DAILY 05/12/21 09/29/23 History hydroCHLOROthiazide 25 mg PO DAILY 05/12/21 09/29/23 History Ascorbic Acid [Vitamin C] 500 mg PO DAILY 09/29/23 09/29/23 History Atorvastatin [Lipitor] 20 mg PO HS 09/29/23 09/29/23 History Cholecalciferol [Vitamin D3 (25 25 mcg PO DAILY 09/29/23 09/29/23 History Mcg = 1000 Iu)] Gabapentin 300 mg PO BID 09/29/23 09/29/23 History Magnesium Oxide [Mag-Ox] 250 mg PO DAILY 09/29/23 09/29/23 History amLODIPine [Norvasc] 2.5 mg PO DAILY 09/29/23 09/29/23 History traMADol HCL 50 mg PO BID PRN 09/29/23 09/29/23 History Allergies Allergy/AdvReac Type Severity Reaction Status Date / Time No Known Allergies Allergy Verified 08/19/21 10:06 Physical Examination - Vital Signs Vital Signs: Vital Signs Temp Pulse Resp BP Pulse Ox 09/29/23 09:54 74 18 119/60 95 09/29/23 07:31 70 18 115/56 96 09/29/23 06:00 72 16 107/65 95 09/29/23 05:22 64 18 117/61 94 L 09/29/23 04:34 98.3 F 74 16 110/65 96 Intake and Output 09/28/23 09/29/23 09/29/23 22:59 06:59 14:59 Other: Weight 53.07 kg GENERAL: The patient is lying in bed and is not in acute distress. NEUROLOGICAL: Higher mental function: The patient is awake, alert, oriented to self, place and time. Patient is following commands. No aphasia and no neglect. Cranial nerves: The pupils are round, equal and reactive to light and accommodation. Visual delgado are full to confrontation throughout. Extraocular movement is intact no nystagmus is noted. Facial sensation is normal to touch throughout. The facial strength is normal throughout. Hearing is mildly decreased bilaterally to hand rub. Tongue is midline and moved [id number] without any difficulty. No dysarthria is noted. Shoulder shrug is normal bilaterally. Motor: The strength is 5 over 5 throughout. Normal tone and bulk. Cerebellum: Normal finger to nose bilaterally. Sensation: Sensation is normal to touch throughout. Reflexes (right/left): 2+ throughout except ankles are 1+ bilaterally. Plantars are downgoing bilaterally. Results - Laboratory Findings CBC and BMP: 09/29/23 04:58 09/29/23 04:58 Abnormal Lab Findings: Abnormal Labs 09/29/23 09/29/23 04:38 04:58 Sodium 130 L Glucose 127 H POC Glucose (mg/dL) 119 H Assessment and Plan Assessment: This is an 83-year-old woman with a number department because of the altered mental status. According to the patient she was having difficulty getting out of bed early in the morning. Currently is back to baseline. Episode of encephalopathy of unknown etiology. Unsure if patient had a transient ischemic attack. Rule out seizure. History of hypertension Hypercholesteremia Plan: I ordered MRI the brain, routine EEG. 2-D echo, carotid duplex is ordered by the primary team is pending I ordered the TSH, ammonia level, B12 and folate level I started the patient on ASA 81mg daily. Was not on antiplatletes prior to this. Is on Lipitor 20mg qhs. Continue neuro checks Cardiac monitoring PT OT are consulted We'll defer the rest of the medical management to the primary team For DVT prophylaxis patient is on subcu heparin Plan discussed with the patient and her family members were bedside Thank you for the consultation Time with Patient: Greater than 30
--- NOTE | 2023-09-29 13:32 | P.CRDCN ---
History of Present Illness History of present illness: HISTORY OF PRESENT ILLNESS: This is a 83-year-old female with a past medical history significant for hypertension and hyperlipidemia. Patient follows in the office with Dr. Saravia but has not been seen since June 2021. We have been asked to see the patient in consultation for hypotension and episode of unresponsiveness. Patient examined at the bedside in the emergency room. Patient states this morning she attempted to get out of bed. She states her legs felt weak and she couldnt stand on her feet. She states she called for her and son and was unable to get up. Apparently, she was not responding to her family. EMS was called. Patient denies any chest pain or pressure. She denies any SOB. Denies any dizziness or lightheadedness or dizziness. The patient states she remembers everything and does not believe she lose consciousness. She states she feels back to normal this morning. Blood pressure 100/41 at the time of examination. DIAGNOSTICS: - EKG reveals sinus mechanism with no signs of acute ischemia - Chest xray mild cardiomegaly. No definite acute process - Laboratory data: WBC 6.8. Hemoglobin 14.7. Platelet count 161. Sodium 130. Potassium 3.9. BUN 16. Creatinine 0.64. Troponin negative x 2. - Current home cardiac medications include hydrochlorothiazide 25 mg daily, amlodipine 2.5 mg daily, losartan 100 mg daily, Lipitor 20 mg at night. - Most recent echocardiogram obtained in April 2021 revealed ejection fraction 55 to 60%, mild AR, mild MR, mild TR - Patient underwent event monitor in 2020 revealing sinus mechanism with a normal conduction, no ventricular ectopy was noted. Patient had a short burst of supraventricular arrhythmia. And 1 episode there is a possibility of atrial fibrillation although not well-visualized. Single PACs were noted. No pauses were noted. No symptoms were reported. - Carotid ultrasound performed in April 2021 revealed findings compatible with turbulent flow from vessel tortosit. No hemodynamically significant ICA stenosis bilaterally. - Patient underwent tilt table testing in August 2021 which was negative for neurocardiogenic syncope or dysautonomia REVIEW OF SYSTEMS: At the time of my exam: CONSTITUTIONAL: Denies fever or chills. HEENT: Denies blurred vision, vision changes, or eye pain. Denies hemoptysis CARDIOVASCULAR: Denies chest pain. Denies orthopnea. Denies PND. Denies palpitations RESPIRATORY: Denies shortness of breath. GASTROINTESTINAL: Denies abdominal pain. Denies nausea or vomiting. HEMATOLOGIC: Denies bleeding disorders. GENITOURINARY: Denies any blood in urine. SKIN: Denies pruitis. Denies rash. PHYSICAL EXAM: VITAL SIGNS: Reviewed. GENERAL: Well-developed in no acute distress. HEENT: Head is normocephalic. Pupils are equal, round. Sclerae anicteric. Mucous membranes of the mouth are moist. Neck supple. No JVD or thyromegaly LUNGS: Respirations even and unlabored. Lungs essentially clear to auscultation bilaterally. HEART: Regular rate and rhythm. S1 and S2 heard. ABDOMEN: Soft. Nondistended. Nontender. EXTREMITIES: Normal range of motion. No clubbing or cyanosis. Peripheral pulses intact. No lower extremity edema NEUROLOGIC: Awake and alert. Oriented x 3. ASSESSMENT: Episode of possible unresponsiveness, possibly related to yaritza cardia/hypotension Hyponatremia History of hypertension History of hyperlipidemia History of syncope PLAN: Obtain 2D echo to assess cardiac structure and function Hold antihypertension medications. Continue to monitor blood pressure. Continue telemetry monitoring to assess for arrhythmias or significant bradycardia Patient to undergo loop recorder insertion tomorrow with Dr. Saravia Further recommendations pending patient course Nurse practitioner note has been reviewed by physician. Signing provider agrees with the documented findings, assessment, and plan of care documented by [employer] as a scribe. Past Medical History Past Medical History: GERD/Reflux, Hyperlipidemia, Hypertension Additional Past Medical History / Comment(s): scoliosis, balance issues . History of Any Multi-Drug Resistant Organisms: None Reported Past Surgical History: Appendectomy, Hysterectomy Additional Past Surgical History / Comment(s): neck surgery Past Anesthesia/Blood Transfusion Reactions: No Reported Reaction Past Psychological History: Anxiety, Depression Smoking Status: Former smoker Medications and Allergies Home Medications Medication Instructions Recorded Confirmed Type Omeprazole [PriLOSEC] 20 mg PO DAILY 06/16/16 09/29/23 History Acetaminophen [Tylenol Extra 500 mg PO Q6H PRN 05/12/21 09/29/23 History Strength] DULoxetine HCL [Cymbalta] 60 mg PO DAILY 05/12/21 09/29/23 History Losartan Potassium 100 mg PO DAILY 05/12/21 09/29/23 History Potassium Chloride ER [K-Dur 10] 10 meq PO DAILY 05/12/21 09/29/23 History hydroCHLOROthiazide 25 mg PO DAILY 05/12/21 09/29/23 History Ascorbic Acid [Vitamin C] 500 mg PO DAILY 09/29/23 09/29/23 History Atorvastatin [Lipitor] 20 mg PO HS 09/29/23 09/29/23 History Cholecalciferol [Vitamin D3 (25 25 mcg PO DAILY 09/29/23 09/29/23 History Mcg = 1000 Iu)] Gabapentin 300 mg PO BID 09/29/23 09/29/23 History Magnesium Oxide [Mag-Ox] 250 mg PO DAILY 09/29/23 09/29/23 History amLODIPine [Norvasc] 2.5 mg PO DAILY 09/29/23 09/29/23 History traMADol HCL 50 mg PO BID PRN 09/29/23 09/29/23 History Allergies Allergy/AdvReac Type Severity Reaction Status Date / Time No Known Allergies Allergy Verified 08/19/21 10:06 Physical Exam Vitals: Vital Signs Temp Pulse Resp BP Pulse Ox 09/29/23 09:54 74 18 119/60 95 09/29/23 07:31 70 18 115/56 96 09/29/23 06:00 72 16 107/65 95 09/29/23 05:22 64 18 117/61 94 L 09/29/23 04:34 98.3 F 74 16 110/65 96 Intake and Output 09/28/23 09/29/23 09/29/23 22:59 06:59 14:59 Other: Weight 53.07 kg Results 09/29/23 04:58 09/29/23 04:58 Cardiac Enzymes 09/29/23 09/29/23 09/29/23 Range/Units 04:58 04:58 08:30 AST 33 (14-36) U/L Troponin I 0.015 0.021 (0.000-0.034) ng/mL Coagulation 09/29/23 Range/Units 04:58 PT 10.9 (10.0-12.5) sec APTT 25.5 (22.0-30.0) sec CBC 09/29/23 Range/Units 04:58 WBC 6.8 (3.8-10.6) k/uL RBC 4.85 (3.80-5.40) m/uL Hgb 14.7 (11.4-16.0) gm/dL Hct 44.1 (34.0-46.0) % Plt Count 161 (150-450) k/uL Comprehensive Metabolic Panel 09/29/23 Range/Units 04:58 Sodium 130 L (137-145) mmol/L Potassium 3.9 (3.5-5.1) mmol/L Chloride 98 (98-107) mmol/L Carbon Dioxide 25 (22-30) mmol/L BUN 16 (7-17) mg/dL Creatinine 0.64 (0.52-1.04) mg/dL Glucose 127 H (74-99) mg/dL Calcium 8.7 (8.4-10.2) mg/dL AST 33 (14-36) U/L ALT 19 (4-34) U/L Alkaline Phosphatase 70 (38-126) U/L Total Protein 6.8 (6.3-8.2) g/dL Albumin 3.9 (3.5-5.0) g/dL Current Medications Generic Name Dose Route Start Last Admin Trade Name Freq PRN Reason Stop Dose Admin Acetaminophen 500 mg 09/29/23 09:05 Acetaminophen Tab 500 Mg Tab PO Q6H PRN Pain Amlodipine Besylate 2.5 mg 09/29/23 09:15 09/29/23 09:55 Amlodipine 2.5 Mg Tab PO 2.5 mg DAILY SARAH Administration Ascorbic Acid 500 mg 09/29/23 09:15 09/29/23 09:55 Ascorbic Acid 500 Mg Tab PO 500 mg DAILY SARAH Administration Atorvastatin Calcium 20 mg 09/29/23 21:00 Atorvastatin 20 Mg Tab PO HS [facility] Cholecalciferol 25 mcg 09/29/23 09:15 09/29/23 09:56 Cholecalciferol 25 Mcg (1000 Iu) Tablet PO 25 mcg DAILY SARAH Administration Duloxetine HCl 60 mg 09/29/23 09:15 09/29/23 09:56 Duloxetine Hcl 60 Mg Capsule. PO 60 mg DAILY SARAH Administration Gabapentin 300 mg 09/29/23 21:00 Gabapentin 300 Mg Cap PO BID [facility] Heparin Sodium (Porcine) 5,000 unit 09/29/23 21:00 Heparin Sodium,Porcine 5,000 Unit/Ml 1 Ml Vial SQ Q12HR SARAH Sodium Chloride 1,000 mls @ 75 mls/hr 09/29/23 08:15 09/29/23 08:51 Saline 0.9% IV 75 mls/hr .[id number] SARAH Administration Magnesium Oxide 200 mg 09/29/23 09:15 09/29/23 09:56 Magnesium Oxide 400 Mg Tab PO 200 mg DAILY SARAH Administration Naloxone HCl 0.2 mg 09/29/23 08:14 Naloxone 0.4 Mg/Ml 1 Ml Vial IV Q2M PRN Opioid Reversal Pantoprazole Sodium 40 mg 09/29/23 09:15 09/29/23 09:55 Pantoprazole 40 Mg Tablet PO 40 mg [id number] SARAH Administration Potassium Chloride 10 meq 09/30/23 09:00 Potassium Chloride Er 10 Meq Tab.Er.Prt PO DAILY SARAH Intake and Output 09/28/23 09/29/23 09/29/23 22:59 06:59 14:59 Other: Weight 53.07 kg 09/29/23 04:58 09/29/23 04:58
[2023-09-29 14:30] LABS: Appearance,Urine Clear (Clear); Bilirubin,Urine Negative (Negative); Blood,Urine Small (Negative); Color,Urine Yellow; Glucose,Urine (UA) Negative (Negative); Ketones,Urine Negative (Negative); Leukocyte Esterase,Urine Negative (Negative); Mucus,Urine Few /hpf; Nitrite,Urine Negative (Negative); Protein,Urine Trace (Negative); RBC,Urine 19 /hpf (0-5); Specific Gravity,Urine 1.022 (1.001-1.035); Squamous Epithelial Cell,Urine 1 /hpf (0-4); Urobilinogen,Urine <2.0 mg/dL (<2.0); WBC,Urine 3 /hpf (0-5)
[2023-09-29] MEDS: ASPIRIN 81 MG PO SCH (14:55)
--- NOTE | 2023-09-29 15:22 | US ---
EXAMINATION TYPE: US carotid duplex BILAT DATE OF EXAM: 09/29/2023 COMPARISON: NONE CLINICAL INDICATION: Female, 83 years old with history of unresponsive, ?tia/cva; On BP meds. No hx tia or stroke. TECHNIQUE: Carotid duplex ultrasound examination. Indirect Doppler criteria was utilized. FINDINGS: EXAM MEASUREMENTS: RIGHT: Peak Systolic Velocity (PSV) cm/sec ----- Right CCA: 41.9 ----- Right ICA: 61.6 ----- Right ECA: 72.1 ICA/CCA ratio: 1.5 RIGHT: End Diastole cm/sec ----- Right CCA: 9.2 ----- Right ICA: 61.6 ----- Right ECA: 72.1 LEFT: Peak Systolic Velocity (PSV) cm/sec ----- Left CCA: 48.8 ----- Left ICA: 46.7 ----- Left ECA: 45.9 ICA/CCA ratio: 1.0 LEFT: End Diastole cm/sec ----- Left CCA: 7.5 ----- Left ICA: 14.0 ----- Left ECA: 0.0 VERTEBRALS (direction of flow): Right Vertebral: Antegrade Left Vertebral: Antegrade Rhythm: Normal ELECTROTYPE FINISHER NOTES: Left CCA appears short and dives down. No elevated velocities. IMPRESSION: No hemodynamically significant internal carotid artery stenosis on either side. Criteria for Assigning % of Stenosis / Diameter reduction (Estimation based on the indirect measurements of the internal carotid artery velocities (ICA PSV). 1. Normal (no stenosis)=ICA PSV < 125 cm/s: ratio < 2.0: ICA EDV<40 cm/s. 2. Less than 50% stenosis=ICA PSV < 125 cm/s: ratio < 2.0: ICA EDV<40 cm/s. 3. 50 to 69% stenosis=ICA PSV of 125 to 230 cm/s: ration 2.0 ? 4.0: ICA EDV 40-100 cm/s. 4. Greater than 70% stenosis to near occlusion= ICA PSV > 230 cm/s: ratio > 4.0: ICA EDV > 100 cm/s. 5. Near occlusion= ICA PSV velocities may be low or undetectable: variable ratio and ICA EDV. 6. Total occlusion=unable to detect flow.
[2023-09-29] MEDS: ATORVASTATIN 20 MG TAB PO SCH (21:51)
[2023-09-29] MEDS: levETIRAcetam 500 MG TAB PO SCH (21:51)
[2023-09-29] MEDS: GABAPENTIN 300 MG CAP PO SCH (21:51)
[2023-09-29] MEDS: HEPARIN SODIUM,PORCINE 5,000 UNIT/ML 1 ML VIAL SQ SCH (21:51)
--- NOTE | 2023-09-30 00:07 | EEG ---
ELECTROENCEPHALOGRAM REPORT CLINICAL HISTORY: This is an 83-year-old woman with episode of confusion at home. The video EEG is obtained to evaluate for seizure epileptiform activity. EEG TYPE: A routine 21-channel EEG with video EEG using the 10/20 electrode placement system. RELEVANT MEDICATION: Tramadol. DESCRIPTION: Wakefulness and drowsiness is obtained. During awake state, the posterior- dominant rhythm consists of [id number] voltage of 8 to 8.5 hertz activity that is well modulated, well sustained. There is no physiological stage 2 sleep architecture. There is no focal slowing. Interictal and ictal, there is a spike/sharp with slow waves over the right parietal/central and seems to have a field effect over the left parietal central region. No seizures noted during the study. ACTIVATION PROCEDURE: Photic stimulation did not evoke a posterior driving response. There is no abnormality during the photic stimulation. Hyperventilation is not performed. CLINICAL INTERPRETATION: This is an abnormal routine EEG. The epileptiform discharge over the right parietal central region could increase risk for focal seizure as well status epilepticus. Otherwise, no seizures noted during the study. Clinical correlation is recommended. MMODL / IJN: [id number] / [id number]
[2023-09-30 08:21] LABS: Basophils # (A) 0.02 X 10*3/uL (0.00-0.10); Basophils % (A) 0.5 %; Eosinophils # (A) 0.02 X 10*3/uL (0.04-0.35); Eosinophils % (A) 0.5 %; Lymphocytes # (A) 1.22 X 10*3/uL (0.90-5.00); Lymphocytes % (A) 30.3 %; MCH 30.4 pg (27.0-32.0); MCHC 34.1 g/dL (32.0-37.0); MCV 88.9 FL (80.0-97.0); Mean Platelet Volume 11.1 FL (9.5-12.2); Monocytes # (A) 0.47 X 10*3/uL (0.20-1.00); Monocytes % (A) 11.7 %; NRBC Per 100 WBC 0 X 10*3/uL (0.00-0.01); Neutrophils # (A) 2.29 X 10*3/uL (1.80-7.70); Neutrophils % (A) 56.8 %; Platelet Count 164 X 10*3/uL (140-440); RBC 4.61 X 10*6/uL (4.10-5.20); RDW 13.2 % (11.5-14.5); WBC 4.03 X 10*3/uL (4.50-10.00)
[2023-09-30] MEDS ORDERED: LIDOCAINE 1% INJ 10MG/ML (20 ML MDV) ONE (08:28)
[2023-09-30] MEDS: SODIUM CHLORIDE 0.9% 600 ML IV ONE (08:29)
[2023-09-30 08:39] LABS: ALT 17 U/L (8-44); AST 30 U/L (13-35); Albumin 3.6 g/dL (3.8-4.9); Albumin/Globulin Ratio 1.64 Ratio (1.60-3.17); Alkaline Phosphatase 66 U/L (41-126); BUN/Creat Ratio 21.57 Ratio (12.00-20.00); Blood Urea Nitrogen 15.1 mg/dL (9.0-27.0); Calcium 8.9 mg/dL (8.7-10.3); Carbon Dioxide 24.4 mmol/L (21.6-31.8); Chloride 99 mmol/L (96-109); Globulin 2.2 g/dL (1.6-3.3); Glucose 101 mg/dL (70-110); Potassium 3.8 mmol/L (3.5-5.5); Sodium 134 mmol/L (135-145); Total Bilirubin 0.4 mg/dL (0.3-1.2); Total Protein 5.8 g/dL (6.2-8.2)
[2023-09-30] MEDS ORDERED: fentaNYL (PF) 50 MCG/ML 2 ML AMP ONE (08:40)
[2023-09-30] MEDS: fentaNYL (PF) 50 MCG/1 ML VIAL IVP ONE (08:40)
[2023-09-30] MEDS: MIDAZOLAM 2 MG/2 ML VIAL IVP ONE (08:41)
[2023-09-30] MEDS: LIDOCAINE 1% INJ 10MG/ML (20 ML MDV) SQ ONE (08:42)
[2023-09-30] MEDS ORDERED: NON FORMULARY DRUG (Omeprazole 20 MG Capsule.Dr) PO SCH (09:00)
[2023-09-30] MEDS: POTASSIUM CHLORIDE ER 10 MEQ TAB.ER.PRT PO SCH (10:28)
[2023-09-30] MEDS: OSELTAMIVIR 60 MG/10 ML ORAL SYRINGE PO SCH (10:29)
[2023-09-30 11:23] VITALS: BMI 23.6
--- NOTE | 2023-09-30 11:27 | P.PN ---
Subjective HISTORY OF PRESENT ILLNESS: This is a 83-year-old female with a past medical history significant for hypertension and hyperlipidemia. Patient follows in the office with Dr. Saravia but has not been seen since June 2021. We have been asked to see the patient in consultation for hypotension and episode of unresponsiveness. Patient examined at the bedside in the emergency room. Patient states this morning she attempted to get out of bed. She states her legs felt weak and she couldnt stand on her feet. She states she called for her and son and was unable to get up. Apparently, she was not responding to her family. EMS was called. Patient denies any chest pain or pressure. She denies any SOB. Denies any dizziness or lightheadedness or dizziness. The patient states she remembers everything and does not believe she lose consciousness. She states she feels back to normal this morning. Blood pressure 100/41 at the time of examination. DIAGNOSTICS: - EKG reveals sinus mechanism with no signs of acute ischemia - Chest xray mild cardiomegaly. No definite acute process - Laboratory data: WBC 6.8. Hemoglobin 14.7. Platelet count 161. Sodium 130. Potassium 3.9. BUN 16. Creatinine 0.64. Troponin negative x 2. - Current home cardiac medications include hydrochlorothiazide 25 mg daily, amlodipine 2.5 mg daily, losartan 100 mg daily, Lipitor 20 mg at night. - Most recent echocardiogram obtained in April 2021 revealed ejection fraction 55 to 60%, mild AR, mild MR, mild TR - Patient underwent event monitor in 2020 revealing sinus mechanism with a normal conduction, no ventricular ectopy was noted. Patient had a short burst of supraventricular arrhythmia. And 1 episode there is a possibility of atrial fibrillation although not well-visualized. Single PACs were noted. No pauses were noted. No symptoms were reported. - Carotid ultrasound performed in April 2021 revealed findings compatible with turbulent flow from vessel tortosit. No hemodynamically significant ICA stenosis bilaterally. - Patient underwent tilt table testing in August 2021 which was negative for neurocardiogenic syncope or dysautonomia 09/30/2023 Patient examined this morning at the bedside. Patient denies any chest pain or pressure. She denies any shortness of breath. Patient was found to be positive for influenza A. Blood pressure stable with a recent reading of 108/55. Telemetry reveals sinus bradycardia. PHYSICAL EXAM: VITAL SIGNS: Reviewed. GENERAL: Well-developed in no acute distress. HEENT: Head is normocephalic. Pupils are equal, round. Sclerae anicteric. Mucous membranes of the mouth are moist. Neck supple. No JVD or thyromegaly LUNGS: Respirations even and unlabored. Lungs essentially clear to auscultation bilaterally. HEART: Regular rate and rhythm. S1 and S2 heard. ABDOMEN: Soft. Nondistended. Nontender. EXTREMITIES: Normal range of motion. No clubbing or cyanosis. Peripheral pulses intact. No lower extremity edema NEUROLOGIC: Awake and alert. Oriented x 3. ASSESSMENT: Episode of possible unresponsiveness, possibly related to bradycardia/hypotension Acute influenza A Hyponatremia History of hypertension History of hyperlipidemia History of syncope PLAN: 2D echo has been ordered. Await results Hold antihypertension medications. Continue to monitor blood pressure. Continue telemetry monitoring to assess for arrhythmias or significant bradycardia Patient to undergo loop recorder insertion today with Dr. Saravia Patient may be discharged home this afternoon from a cardiac standpoint Nurse practitioner note has been reviewed by physician. Signing provider agrees with the documented findings, assessment, and plan of care documented by GIFT SHOP MANAGER as a scribe. Objective - Vital Signs Vital signs: Vital Signs Temp 98.9 F 09/30/23 07:15 Pulse 53 L 09/30/23 08:00 Resp 15 09/30/23 08:00 BP 108/55 09/30/23 07:15 Pulse Ox 93 L 09/30/23 07:15 FiO2 Intake & Output 09/29/23 09/30/23 09/30/23 18:59 06:59 18:59 Intake Total 150 Balance 150 Weight 53.07 kg 53.07 kg Intake: IV 150 Other: Voiding Method Toilet Toilet # Voids 1 - Labs CBC & Chem 7: 09/30/23 05:52 09/30/23 05:52 Labs: Abnormal Lab Results - Last 24 Hours (Table) 09/29/23 09/29/23 09/30/23 Range/Units 13:36 13:48 05:52 WBC 4.03 L (4.50-10.00) X 10*3/uL Eosinophils # 0.02 L (0.04-0.35) X 10*3/uL Sodium (135-145) mmol/L BUN/Creatinine Ratio (12.00-20.00) Ratio Total Protein (6.2-8.2) g/dL Albumin (3.8-4.9) g/dL Urine Protein Trace H (Negative) Urine Blood Small H (Negative) Urine RBC 19 H (0-5) /hpf Urine Mucus Few H (None) /hpf Influenza Type A (PCR) Detected A (Not Detectd) 09/30/23 Range/Units 05:52 WBC (4.50-10.00) X 10*3/uL Eosinophils # (0.04-0.35) X 10*3/uL Sodium 134 L (135-145) mmol/L BUN/Creatinine Ratio 21.57 H (12.00-20.00) Ratio Total Protein 5.8 L (6.2-8.2) g/dL Albumin 3.6 L (3.8-4.9) g/dL Urine Protein (Negative) Urine Blood (Negative) Urine RBC (0-5) /hpf Urine Mucus (None) /hpf Influenza Type A (PCR) (Not Detectd)
--- NOTE | 2023-09-30 14:35 | P.PN ---
Subjective Progress Note Date: 09/30/23 This is an 83-year-old female who was recently admitted with an unresponsive episode per family yesterday and brought to the hospital undergoing further neurological workup as well as cardiology workup. Patient underwent CT of the brain which showed chronic small vessel ischemia recommending an MRI of the brain which is currently pending per nursing staff until tomorrow as there are multiple other MRIs ordered that are pending as well. Per family patient and have not been feeling well over the last couple of days and viral testing including influenza, COVID, and RSV were done and patient is influenza A positive. Tamiflu being started. Patient also evaluated by cardiology with concerns of possible syncopal episode and is status post receiving a loop recorder today. Patient has been cleared by cardiology for outpatient follow- up. Patient's mentation is improved although reports she feels generally unwell and fatigued. Recommend PT/OT therapy evaluation Review of systems: Constitutional: reports of fatigue, no fever, or chills Cardiovascular: No reports of chest pain or palpitations Respiratory: No reports of worsening shortness of breath or cough GI: No reports of nausea, no reports of vomiting, no diarrhea : No reports of dysuria or retention Neurovascular: reports of generalized weakness All medications have been reviewed PHYSICAL EXAMINATION: GENERAL: The patient is alert and oriented x3, Well developed, ill appearing, elderly appearing, thin built. HEENT: Pupils are round and equally reacting to light. EOMI. no scleral icterus. No conjunctival pallor. Normocephalic, atraumatic. No pharyngeal erythema. No thyromegaly. CARDIOVASCULAR: S1 and S2 muffled PULMONARY: diminished breath sounds bilaterally with no wheezing or rhonchi noted. ABDOMEN: soft. Nontender on exam. obese. non-distended, normoactive bowel sounds. No palpable organomegaly. MUSCULOSKELETAL: No joint swelling or deformity. EXTREMITIES: No cyanosis, clubbing, or pedal edema. NEUROLOGICAL: Gross neurological examination did not reveal any focal deficits. Diffuse weakness SKIN: No rashes. Assessment: Change in mental status, possible acute TIA versus CVA Episode of unresponsiveness, multifactorial possibly secondary to hypotension/bradycardia, status post loop recorder with Dr. Saravia Rule out seizure disorder, there were noted discharges on the EEG and patient was started on Keppra Hypertension history Hyperlipidemia History of anxiety/depression Acute influenza A infection GI prophylaxis DVT prophylaxis Full code Plan: Recommend to continue with current medications and management with cardiology and neurology following. Patient is status post evaluation by cardiology and received a loop recorder today and has been cleared by cardiology for outpatient follow-up Patient continued on antihypertensive medications although being held as patient is currently normotensive with concerns of hypotension on admission Acute influenza A infection, initiated Tamiflu Patient scheduled to undergo MRI of the brain and not able to have until Wednesday due to multiple other MRIs being ordered and pending throughout the hospital Will have PT/OT therapy evaluate the patient Follow-up on repeat labs Patient did undergo EEG showing epileptiform discharge over the right parietal central region which could increase the risk of seizures and patient has been started on Keppra Await MRI and discuss further with neurology about discharge planning possibly in the next 24 to 48 hours The impression and plan of care has been dictated by Carrie Medina, nurse practitioner as directed. Dr. Jaison MD I have performed a history and examination and MDM of this patient, discussed the same with the dictator, and agree with the dictator's assessment and plan as written ,documented as a scribe. Based on total visit time, I have performed more than 50% of the visit. Any additional findings or plans will be noted. Objective - Vital Signs Vital signs: Vital Signs Temp 98.9 F 09/30/23 07:15 Pulse 53 L 09/30/23 07:15 Resp 15 09/30/23 07:15 BP 108/55 09/30/23 07:15 Pulse Ox 93 L 09/30/23 07:15 FiO2 Intake & Output 09/29/23 09/30/23 09/30/23 18:59 06:59 18:59 Intake Total 150 Balance 150 Weight 53.07 kg Intake: IV 150 Other: Voiding Method Toilet # Voids 1 - Labs CBC & Chem 7: 09/30/23 05:52 09/30/23 05:52 Labs: Abnormal Lab Results - Last 24 Hours (Table) 09/29/23 09/29/23 09/30/23 Range/Units 13:36 13:48 05:52 WBC 4.03 L (4.50-10.00) X 10*3/uL Eosinophils # 0.02 L (0.04-0.35) X 10*3/uL Sodium (135-145) mmol/L BUN/Creatinine Ratio (12.00-20.00) Ratio Total Protein (6.2-8.2) g/dL Albumin (3.8-4.9) g/dL Urine Protein Trace H (Negative) Urine Blood Small H (Negative) Urine RBC 19 H (0-5) /hpf Urine Mucus Few H (None) /hpf Influenza Type A (PCR) Detected A (Not Detectd) 09/30/23 Range/Units 05:52 WBC (4.50-10.00) X 10*3/uL Eosinophils # (0.04-0.35) X 10*3/uL Sodium 134 L (135-145) mmol/L BUN/Creatinine Ratio 21.57 H (12.00-20.00) Ratio Total Protein 5.8 L (6.2-8.2) g/dL Albumin 3.6 L (3.8-4.9) g/dL Urine Protein (Negative) Urine Blood (Negative) Urine RBC (0-5) /hpf Urine Mucus (None) /hpf Influenza Type A (PCR) (Not Detectd)
--- NOTE | 2023-09-30 15:05 | P.PN ---
Subjective Progress Note Date: 09/30/23 I am following-up with patient and she feels about the same. She is tolerating Keppra well since felt there is discharges on EEG. Objective - Vital Signs Vital signs: Vital Signs Temp 97.8 F 09/30/23 14:40 Pulse 69 09/30/23 14:40 Resp 16 09/30/23 14:40 BP 88/49 09/30/23 14:40 Pulse Ox 97 09/30/23 14:40 FiO2 Intake & Output 09/29/23 09/30/23 09/30/23 18:59 06:59 18:59 Intake Total 150 Balance 150 Weight 53.07 kg 53.07 kg Intake: IV 150 Other: Voiding Method Toilet Toilet # Voids 1 1 - Exam GENERAL: The patient is lying in bed and is not in acute distress. NEUROLOGICAL: Higher mental function: The patient is awake, alert, oriented to self, place and time. Patient is following commands. No aphasia and no neglect. Cranial nerves: The pupils are round, equal and reactive to light and accommodation. Visual delgado are full to confrontation throughout. Extraocular movement is intact no nystagmus is noted. Facial sensation is normal to touch throughout. The facial strength is normal throughout. Hearing is mildly decreased bilaterally to hand rub. Tongue is midline and moved [id number] without any difficulty. No dysarthria is noted. Shoulder shrug is normal bilaterally. Motor: The strength is 5 over 5 throughout. Normal tone and bulk. Cerebellum: Normal finger to nose bilaterally. Sensation: Sensation is normal to touch throughout. Some of the workup during his hospital visit consisted of: Patient is afebrile. CBC with differential is unremarkable Sodium is 1:30, BUN and creatinine is normal, calcium is 8.7, initial serum glucose is 127 CK level as 112 Vitamin B12: 787 Serum folate: 19.2 TSH: 1.64 Ammonia <9 Influenza A PCR is positive. EKG is reported as sinus rhythm with short [place] interval. Nonspecific ST and T- wave abnormality. Carotid duplex: No hemodynamically significant internal carotid artery stenosis on either side. CT of the head is reported as similar moderate to severe burden of chronic small vessel ischemic disease. Mild ventricular prominence likely related to central cerebral atrophy also is also similar. No acute intracranial abnormality seen. Given scattered paranasal sinus air-fluid levels, correlate for possible acute sinusitis. I personally reviewed the CT and agree with the report. Routine EEG: Is abnormal. The epileptiform discharge over the right parietal/central region could increase risk for focal seizure and status epilepticus. Otherwise, no seizures noted during this study. - Labs CBC & Chem 7: 09/30/23 05:52 09/30/23 05:52 Labs: Abnormal Lab Results - Last 24 Hours (Table) 09/30/23 09/30/23 Range/Units 05:52 05:52 WBC 4.03 L (4.50-10.00) X 10*3/uL Eosinophils # 0.02 L (0.04-0.35) X 10*3/uL Sodium 134 L (135-145) mmol/L BUN/Creatinine Ratio 21.57 H (12.00-20.00) Ratio Total Protein 5.8 L (6.2-8.2) g/dL Albumin 3.6 L (3.8-4.9) g/dL Assessment and Plan Assessment: This is an 83-year-old woman with a number department because of the altered mental status. According to the patient she was having difficulty getting out of bed early in the morning. Currently is back to baseline. Episode of encephalopathy seems due to multifactorial: Primary due to Influenza A. Also on EEG had discharges on right parietal/central and unsure if had seizure at home and that why she was possible unresponsive. History of hypertension Hypercholesteremia Plan: MRI the brain is pending EEG had discharges on right parietal/central. Therefore, I started her on Keppra 500mg bid on 09/29/23. I notified her side-effects of medication. Notified that per [place] DMV, for seizures, to avoid driving for 6 months until seizure free, avoid heights, avoid swimining unassisted and avoid heavy machinery. 2-D echopending I started her on ASA 81mg daily for concern for stroke but if MRI is negative then no need for ASA. Was not on antiplatletes prior to this. Is on Lipitor 20mg qhs. Continue neuro checks Cardiac monitoring PT OT are consulted We'll defer the rest of the medical management to the primary team For DVT prophylaxis patient is on subcu heparin Time with Patient: Less than 30
--- NOTE | 2023-09-30 23:05 | P.PCN ---
Description of Procedure: Procedure: Insertion of Linq loop recorder Indication: Syncope CONSENT:I have discussed the risks, benefits and alternative therapies for the above-mentioned procedure. The patient has indicated understanding and acceptance of the risks and procedures discussed. PROCEDURE: Patient was brought to the catheterization lab in a fasting state. Patient was prepped and draped in the usual fashion. 1% lidocaine was used to anesthetize the area of the left third intercostal space. Using the loop recorder incision device, a small 0.5 cm incision was made in the left 3rd intercostal space. Next the Linq loop recorder was deployed in the 3rd intercostal space subcutaneously using the insertion tool. Thresholds were checked and were excellent at 0.3 V. Next the incision was closed using Dermabond. Steristrips were placed over the incision and the procedure was completed. The patient tolerated the procedure well. The patient was transported to the post cath holding area in stable condition. Linq loop recorder serial number: [id number]
--- NOTE | 2023-09-30 23:40 | CA ---
Transthoracic Echo Report Name: Rosario Melo Age: 83 Gender: F : 1940 Exam Date: 09/30/2023 11:13 Exam Location: [facility] Ht (in): 49 Wt (lb): 117 Ordering Physician: Carrie Medina Attending/Referring Phys: Product Craftsman Mary Dominique RDCS Procedure CPT: Indications: unresponsive episode Cardiac Hx: Technical Quality: Fair Contrast 1: Total Dose (mL): Contrast 2: Total Dose (mL): MEASUREMENTS (Male / Female) Normal Values 2D ECHO LV Diastolic Diameter PLAX 4.0 cm 4.2 - 5.9 / 3.9 - 5.3 cm LV Systolic Diameter PLAX 2.2 cm IVS Diastolic Thickness 1.1 cm 0.6 - 1.0 / 0.6 - 0.9 cm LVPW Diastolic Thickness 1.0 cm 0.6 - 1.0 / 0.6 - 0.9 cm LV Relative Wall Thickness 0.5 LA Volume 42.5 cm??? 18 - 58 / 22 - 52 cm??? LA Volume Index 30.6 cm???/m??? 16 - 28 cm???/m??? DOPPLER AV Peak Velocity 188.8 cm/s AV Peak Gradient 14.3 mmHg AV Mean Velocity 123.3 cm/s AV Mean Gradient 7.0 mmHg AV Velocity Time Integral 38.9 cm AI Peak Velocity 455.1 cm/s AI Peak Gradient 82.9 mmHg AI Pressure Half Time 918.7 ms LVOT Peak Velocity 105.0 cm/s LVOT Peak Gradient 4.4 mmHg LVOT Velocity Time Integral 27.9 cm MV Area PHT 2.6 cm??? Mitral E Point Velocity 87.3 cm/s Mitral A Point Velocity 112.8 cm/s Mitral E to A Ratio 0.8 MV Deceleration Time 287.8 ms FINDINGS Left Ventricle Mildly increased left ventricular wall thickness. Left ventricular cavity size normal. Normal left ventricular systolic function with no obvious regional wall motion abnormalities. Left ventricular ejection fraction is estimated at 50-55 %. Right Ventricle Normal right ventricular size and function. Right ventricular systolic pressure within normal limits. Right Atrium Normal right atrial size. Left Atrium Mildly increased left atrial volume. Mitral Valve Structurally normal mitral valve. Mild mitral annular calcification. Mild mitral regurgitation. Aortic Valve Trileaflet aortic valve. No aortic stenosis. Mild aortic regurgitation. Tricuspid Valve Structurally normal tricuspid valve. Mild tricuspid regurgitation. Pulmonic Valve Structurally normal pulmonic valve. Pericardium No pericardial effusion. Aorta Normal size aortic root and proximal ascending aorta. CONCLUSIONS Mildly increased left ventricular wall thickness Left ventricular ejection fraction 50-55% Mild mitral regurgitation Mild tricuspid regurgitation Previewed by: Dr. Jb Saravia DO (Electronically Signed) Final Date: 30 September 2023 23:40
--- NOTE | 2023-10-01 10:50 | P.PN ---
Subjective HISTORY OF PRESENT ILLNESS: This is a 83-year-old female with a past medical history significant for hypertension and hyperlipidemia. Patient follows in the office with Dr. Saravia but has not been seen since June 2021. We have been asked to see the patient in consultation for hypotension and episode of unresponsiveness. Patient examined at the bedside in the emergency room. Patient states this morning she attempted to get out of bed. She states her legs felt weak and she couldnt stand on her feet. She states she called for her and son and was unable to get up. Apparently, she was not responding to her family. EMS was called. Patient denies any chest pain or pressure. She denies any SOB. Denies any dizziness or lightheadedness or dizziness. The patient states she remembers everything and does not believe she lose consciousness. She states she feels back to normal this morning. Blood pressure 100/41 at the time of examination. DIAGNOSTICS: - EKG reveals sinus mechanism with no signs of acute ischemia - Chest xray mild cardiomegaly. No definite acute process - Laboratory data: WBC 6.8. Hemoglobin 14.7. Platelet count 161. Sodium 130. Potassium 3.9. BUN 16. Creatinine 0.64. Troponin negative x 2. - Current home cardiac medications include hydrochlorothiazide 25 mg daily, amlodipine 2.5 mg daily, losartan 100 mg daily, Lipitor 20 mg at night. - Most recent echocardiogram obtained in April 2021 revealed ejection fraction 55 to 60%, mild AR, mild MR, mild TR - Patient underwent event monitor in 2020 revealing sinus mechanism with a normal conduction, no ventricular ectopy was noted. Patient had a short burst of supraventricular arrhythmia. And 1 episode there is a possibility of atrial fibrillation although not well-visualized. Single PACs were noted. No pauses were noted. No symptoms were reported. - Carotid ultrasound performed in April 2021 revealed findings compatible with turbulent flow from vessel tortosit. No hemodynamically significant ICA stenosis bilaterally. - Patient underwent tilt table testing in August 2021 which was negative for neurocardiogenic syncope or dysautonomia 09/30/2023 Patient examined this morning at the bedside. Patient denies any chest pain or pressure. She denies any shortness of breath. Patient was found to be positive for influenza A. Blood pressure stable with a recent reading of 108/55. Telemetry reveals sinus bradycardia. 10/01/2023 Patient examined this morning at the bedside. She is status post loop recorder insertion. Dressing is clean dry and intact. She denies any chest pain or pressure. She denies any shortness of breath. Denies any dizziness or lightheadedness. Blood pressures remain on the low side with a systolic around 90. Cardiogram completed revealing ejection fraction 50 to 55%, mild MR, mild TR PHYSICAL EXAM: VITAL SIGNS: Reviewed. GENERAL: Well-developed in no acute distress. HEENT: Head is normocephalic. Pupils are equal, round. Sclerae anicteric. Mucous membranes of the mouth are moist. Neck supple. No JVD or thyromegaly LUNGS: Respirations even and unlabored. Lungs essentially clear to auscultation bilaterally. HEART: Regular rate and rhythm. S1 and S2 heard. ABDOMEN: Soft. Nondistended. Nontender. EXTREMITIES: Normal range of motion. No clubbing or cyanosis. Peripheral pulses intact. No lower extremity edema NEUROLOGIC: Awake and alert. Oriented x 3. ASSESSMENT: Episode of possible unresponsiveness, possibly related to bradycardia/hypotension Acute influenza A Hyponatremia History of hypertension History of hyperlipidemia History of syncope PLAN: Continue to hold antihypertensive medications at discharge No further inpatient recommendations from a cardiac standpoint Patient is stable for discharge home today She is to follow up in the office with Dr. Saravia postdischarge We will sign off. Please reconsult if needed Nurse practitioner note has been reviewed by physician. Signing provider agrees with the documented findings, assessment, and plan of care documented by SUPERVISOR LIQUEFACTION as a scribe. Objective - Vital Signs Vital signs: Vital Signs Temp 98.8 F 10/01/23 07:25 Pulse 52 L 10/01/23 07:25 Resp 15 10/01/23 07:25 BP 95/58 10/01/23 07:25 Pulse Ox 95 10/01/23 07:25 FiO2 Intake & Output 09/30/23 10/01/23 10/01/23 18:59 06:59 18:59 Intake Total 440 250 Balance 440 250 Weight 53.07 kg Intake: IV 150 Oral 290 250 Other: Voiding Method Toilet Toilet # Voids 1 1 - Labs CBC & Chem 7: 09/30/23 05:52 09/30/23 05:52 Labs: Microbiology - Last 24 Hours (Table) 09/29/23 14:15 Blood Culture - Preliminary Blood
--- NOTE | 2023-10-01 12:39 | P.PN ---
Subjective Progress Note Date: 10/01/23 I am following-up with patient and she feels she is doing well. No new neurological issues. No more episode of unresponsiveness or severe drowsiness. Objective - Vital Signs Vital signs: Vital Signs Temp 98.8 F 10/01/23 07:25 Pulse 52 L 10/01/23 07:25 Resp 15 10/01/23 07:25 BP 95/58 10/01/23 07:25 Pulse Ox 95 10/01/23 07:25 FiO2 Intake & Output 09/30/23 10/01/23 10/01/23 18:59 06:59 18:59 Intake Total 440 250 Balance 440 250 Weight 53.07 kg Intake: IV 150 Oral 290 250 Other: Voiding Method Toilet Toilet Toilet # Voids 1 1 - Exam GENERAL: The patient is lying in bed and is not in acute distress. NEUROLOGICAL: Higher mental function: The patient is awake, alert, oriented to self, place and time. Patient is following commands. No aphasia and no neglect. Cranial nerves: The pupils are round, equal and reactive to light and accommodation. Visual delgado are full to confrontation throughout. Extraocular movement is intact no nystagmus is noted. Facial sensation is normal to touch throughout. The facial strength is normal throughout. Hearing is mildly decreased bilaterally to hand rub. Tongue is midline and moved avfe-ed-ytoe without any difficulty. No dysarthria is noted. Shoulder shrug is normal bilaterally. Motor: The strength is 5 over 5 throughout. Normal tone and bulk. Cerebellum: Normal finger to nose bilaterally. Sensation: Sensation is normal to touch throughout. Some of the workup during his hospital visit consisted of: Patient is afebrile. CBC with differential is unremarkable Sodium is 1:30, BUN and creatinine is normal, calcium is 8.7, initial serum glucose is 127 CK level as 112 Vitamin B12: 787 Serum folate: 19.2 TSH: 1.64 Ammonia <9 Influenza A PCR is positive. EKG is reported as sinus rhythm with short TN interval. Nonspecific ST and T- wave abnormality. Carotid duplex: No hemodynamically significant internal carotid artery stenosis on either side. CT of the head is reported as similar moderate to severe burden of chronic small vessel ischemic disease. Mild ventricular prominence likely related to central cerebral atrophy also is also similar. No acute intracranial abnormality seen. Given scattered paranasal sinus air-fluid levels, correlate for possible acute sinusitis. I personally reviewed the CT and agree with the report. Routine EEG: Is abnormal. The epileptiform discharge over the right parietal/central region could increase risk for focal seizure and status epilepticus. Otherwise, no seizures noted during this study. 2D echo: It is reported as mildly increased left ventricle wall thickness. Left ventricular ejection fraction 50-55%. - Labs CBC & Chem 7: 09/30/23 05:52 09/30/23 05:52 Labs: Microbiology - Last 24 Hours (Table) 09/29/23 14:15 Blood Culture - Preliminary Blood Assessment and Plan Assessment: This is an 83-year-old woman with a number department because of the altered mental status. According to the patient she was having difficulty getting out of bed early in the morning. Currently is back to baseline. Episode of encephalopathy seems due to multifactorial: Primary due to Influenza A. Also on EEG had discharges on right parietal/central and unsure if had seizure at home and that why she was possible unresponsive. History of hypertension Hypercholesteremia Plan: MRI the brain is pending EEG had discharges on right parietal/central. Therefore, I started her on Keppra 500mg bid on 09/29/23. I notified her side-effects of medication. Notified that [place], for seizures, to avoid driving for 6 months until s eizure free, avoid heights, avoid swimining unassisted and avoid heavy machinery. I started her on ASA 81mg daily for concern for stroke but if MRI is negative then no need for ASA. Was not on antiplatletes prior to this. Is on Lipitor 20mg qhs. Continue neuro checks Cardiac monitoring PT OT are consulted Cardiology has placed a loop recorder for her syncopal episode. We'll defer the rest of the medical management to the primary team For DVT prophylaxis patient is on subcu heparin Plan discussed with the patient, her daughter was at bedside as well as the primary team nurse practitioner Time with Patient: Less than 30
[2023-10-01 15:07] VITALS: BP 104/52; PULSE 43; RESP 16; TEMP 97.6
--- NOTE | 2023-10-01 17:02 | MR ---
EXAMINATION TYPE: MR brain wo/w con DATE OF EXAM: 10/01/2023 4:22 PM CLINICAL INDICATION:Female, 83 years old with history of seizure. COMPARISON: 09/29/2023 TECHNIQUE: Multi planar, multi sequence imaging was performed through the brain including: T1, T2, In version recovery, susceptibility weighted imaging and gradient echo imaging and Diffusion weighted im aging. The patient was then given intravenous contrast and multi planar, T1 fat-saturation images wer e obtained. IV Contrast: 5 cc Gadavist FINDINGS: Mild cerebral atrophy with proportional dilation of ventricular system. Prominent perivascular space s are seen in the bilateral basal ganglia. Remote injury to the right caudate nucleus with blooming a rtifact suggestive of hemosiderin deposition. Diffusion-weighted imaging shows no evidence of restric chaparro diffusion to suggest acute/subacute infarct. Intracranial arterial flow voids are maintained. Mid line structures show no abnormality. Scattered foci of high T2 signal intensity are seen within the p eriventricular white matter. The susceptibility weighted images do not reveal any evidence for micro- hemorrhage. After administration of gadolinium, no abnormal enhancement is seen. The bone marrow signal is within normal limits. Paranasal sinuses and mastoid air cells: Mild scattered paranasal sinus disease. Visualized orbits: Bilateral aphakia Fixation changes to the lower cervical spine partially visualized susceptibility artifact. IMPRESSION: 1. No evidence of intracranial mass, acute/subacute infarct, or abnormal enhancement. 2. Nonspecific white matter changes, likely related to small vessel ischemic disease. 3. Remote right caudate nucleus injury. 4. Paranasal sinus disease.
--- NOTE | 2023-10-03 09:52 | P.DS ---
Providers Date of admission: 10/01/23 09:42 Expected date of discharge: 10/01/23 Attending physician: Ricci Saab MD Consults: 09/29/23 08:14 Consult Physician Routine Consulting Provider: River Tolbert Consult Reason/Comments: Unresponsive episode Do you want consulting provider notified?: Yes Primary care physician: Yuliana Marin Hospital Course: Final diagnosis Change in mental status, acute CVA Episode of unresponsiveness, multifactorial possibly secondary to hypotension/bradycardia, status post loop recorder with Dr. Saravia Rule out seizure disorder, there were noted discharges on the EEG and patient was started on Keppra Hypertension history Hyperlipidemia History of anxiety/depression Acute influenza A infection GI prophylaxis DVT prophylaxis Full code Discharge disposition Patient is being discharged in a stable condition with guarded prognosis to home. Patient will follow-up with Dr. Yuliana Marin in the outpatient setting upon discharge. Patient is to continue with aspirin and statin therapy and close outpatient follow-up with neurology as scheduled. Patient to continue Tamiflu for the next few days to complete the course. Total time taken is gre ater than 35 minutes. Hospital course This is a 83-year-old female who was recently admitted with increased weakness and acute alteration in mentation with an episode of unresponsiveness per family. Patient was brought to the hospital and found to have acute influenza A infection and started on Tamiflu. Patient also underwent neurological workup as well as cardiology evaluation and has received a loop recorder. Concerns with acute CVA and MRI was noted to have no evidence of intracranial mass acute/subacute infarct or abnormal enhancement there are some nonspecific white matter changes likely related to small vessel ischemic disease and there is a remote right caudate nucleus injury noted with paranasal sinus disease. Symptoms have resolved and patient reports to feeling baseline. Patient has been instructed to follow-up with neurology in the outpatient setting and will continue on Keppra for now as patient did have some discharges noted on EEG. Please refer to other consultation notes for further HPI. Patient would like to go home today and will be discharged today. Currently no reports of chest pain, shortness of breath, or palpitations. Patient is afebrile. No reports of nausea or vomiting and patient is tolerating diet. Patient will be discharged home today. High risk for readmission given patient's significant comorbidities and age. Physical exam: Gen: This is a 83-year-old female who is awake, alert and oriented x 3, well- developed, well-nourished, elderly appearing HEENT: Head is atraumatic, normocephalic. Pupils equal, round. Sclerae is anicteric. NECK: Supple. No JVD. No lymphadenopathy. No thyromegaly. LUNGS: Clear to auscultation. No wheezes or rhonchi. No intercostal retractions. HEART: Regular rate and rhythm. No murmur. ABDOMEN: Soft. Bowel sounds are present. No masses. No tenderness. EXTREMITIES: No pedal edema. No calf tenderness. NEUROLOGICAL: Patient is awake, alert and oriented x3. Cranial nerves 2 through 12 are grossly intact. Please refer to medication reconciliation sheet for a list of medications. The impression and plan of care has been dictated by Carrie Medina, Nurse Practitioner as directed. Dr. Jaison MD I have performed a history and examination and MDM of this patient, discussed the same with the dictator, and agree with the dictator's assessment and plan as written ,documented as a scribe. Based on total visit time, I have performed more than 50% of the visit. Patient Condition at Discharge: Stable Plan - Discharge Summary Discharge Rx Participant: No New Discharge Prescriptions: New Aspirin 81 mg PO DAILY 30 Days #30 tab Oseltamivir 6Mg/ml Oral Susp [Tamiflu] 30 mg PO Q12HR 3 Days #6 each levETIRAcetam [Keppra] 500 mg PO Q12HR 30 Days #60 tab Continue Omeprazole [PriLOSEC] 20 mg PO DAILY Potassium Chloride ER [K-Dur 10] 10 meq PO DAILY Acetaminophen [Tylenol Extra Strength] 500 mg PO Q6H PRN PRN Reason: Pain Ascorbic Acid [Vitamin C] 500 mg PO DAILY traMADol HCL 50 mg PO BID PRN PRN Reason: Pain Cholecalciferol [Vitamin D3 (25 Mcg = 1000 Iu)] 25 mcg PO DAILY DULoxetine HCL [Cymbalta] 60 mg PO DAILY Magnesium Oxide [Mag-Ox] 250 mg PO DAILY Atorvastatin [Lipitor] 20 mg PO HS Gabapentin 300 mg PO BID Discontinued hydroCHLOROthiazide 25 mg PO DAILY Losartan Potassium 100 mg PO DAILY amLODIPine [Norvasc] 2.5 mg PO DAILY Discharge Medication List Omeprazole [PriLOSEC] 20 mg PO DAILY 06/16/16 [History] Acetaminophen [Tylenol Extra Strength] 500 mg PO Q6H PRN 05/12/21 [History] DULoxetine HCL [Cymbalta] 60 mg PO DAILY 05/12/21 [History] Potassium Chloride ER [K-Dur 10] 10 meq PO DAILY 05/12/21 [History] Ascorbic Acid [Vitamin C] 500 mg PO DAILY 09/29/23 [History] Atorvastatin [Lipitor] 20 mg PO HS 09/29/23 [History] Cholecalciferol [Vitamin D3 (25 Mcg = 1000 Iu)] 25 mcg PO DAILY 09/29/23 [History] Gabapentin 300 mg PO BID 09/29/23 [History] Magnesium Oxide [Mag-Ox] 250 mg PO DAILY 09/29/23 [History] traMADol HCL 50 mg PO BID PRN 09/29/23 [History] Aspirin 81 mg PO DAILY 30 Days #30 tab 10/01/23 [Rx] Oseltamivir 6Mg/ml Oral Susp [Tamiflu] 30 mg PO Q12HR 3 Days #6 each 10/01/23 [Rx] levETIRAcetam [Keppra] 500 mg PO Q12HR 30 Days #60 tab 10/01/23 [Rx] Follow up Appointment(s)/Referral(s): Yajaira Molina MD [REFERRING] - 1 Week (please call and make f/u appts, offices closed) Jb Saravia DO [STAFF PHYSICIAN] - 1 Week (please call and make follow up appt. offices closed) Yuliana Marin MD [Primary Care Provider] - 1-2 days (please call and make follow up appt. offices closed) Patient Instructions/Handouts: Cardiac Loop Recorder Insertion (DC) Activity/Diet/Wound Care/Special Instructions: Activity limited until follow-up Follow-up with primary care provider on discharge Continue medications as prescribed Outpatient follow-up with cardiology in 1 to 2 weeks Outpatient follow-up with neurology Discharge Disposition: HOME SELF-CARE
--- NOTE | 2023-10-05 15:19 | CDI ---
Documentation Clarification Form Date: 10/05/23 From: Vikas Henderson, RACHEAL, RN Phone: [phone] Admit Date: 10/01/2023 09:42:00 AM Patient Name: Rosario Melo Visit Number: [id number] Discharge Date: 10/01/2023 08:46:00 PM ATTENTION: The Clinical Documentation Specialists (CDI) and [facility] Coding Staff appreciate your assistance in clarifying documentation. Please respond to the clarification below the line at the bottom and electronically sign. The CDI & [facility] Coding staff will review the response and follow-up if needed. Please note: Queries are made part of the Legal Health Record. If you have any questions, please contact the author of this message via ITS. Dr. Tolbert Episode of encephalopathy seems due to multifactorial: Primary due to Influenza A. Also on EEG had discharges on right parietal/central and unsure if had seizure at home and that why she was possible unresponsive is documented in the progress note dated 09/30 and 10/01. Additional clarification regarding the type of encephalopathy is requested. History/Risk Factors: 83 yo female presented to ED on 09/29 with change in mental status. PMH HTN, anxiety, depression. Clinical Indicators: Cardiology PN 09/30 and 10/01 Hyponatremia Na (09/29, 09/30) 130, 134 GCS in ED 15 Influenza A detected 09/29 EEG (09/29) : abnormal EEG, no seizures noted during the study, epileptiform discharge over the right parietal central region could increase risk for focal seizure as well as status epilepticus CT Brain: (09/29) chronic small vessel ischemic disease, central cerebral atrophy. No acute process. Treatment: Keppra 500 mg bid NS bolus in ED 500 ml, then NS @ 75 ml/hr on 09/29, changed to 50 ml/hr on 09/29 at 1334, dcd on 10/01 PT/OT consult on 09/29 for gait dysfunction Please clarify the type of encephalopathy, if known: [ ] Metabolic Encephalopathy due to influenza A and hyponatremia [ X] Multifactorial: Metabolic encephalopathy due to influenza A/hyponatremia and possible post ictal status [ ] Other, please specify [ ] Unable to determine MTDD
== END 2023-10-01 20:46 | disposition home or self-care (01) | DRG 40 ==
LOC: EC 04:33 → 6NMEDSUR 08:14 → OBSVTOIN 10-01 09:42
PROVIDERS: ADMIT Internal Medicine; ATTEND Internal Medicine
PROC: 0JH632Z Insertion of Monitoring Device into Chest Subcutaneous Tissue and Fascia, Percutaneous Approach (ICD-10-PCS; principal; 2023-10-01)
PROC: 4A12X4Z Monitoring of Cardiac Electrical Activity, External Approach (ICD-10-PCS; 2023-10-01)
PROC: 4A10X4Z Monitoring of Central Nervous Electrical Activity, External Approach (ICD-10-PCS; 2023-10-01)
DX: I63.9 Cerebral infarction, unspecified (principal); G93.41 Metabolic encephalopathy; E87.1 Hypo-osmolality and hyponatremia; E78.00 Pure hypercholesterolemia, unspecified; R00.1 Bradycardia, unspecified; I95.9 Hypotension, unspecified; J10.1 Influenza due to other identified influenza virus with other respiratory manifestations; I10 Essential (primary) hypertension; Z11.52 Encounter for screening for COVID-19; G31.89 Other specified degenerative diseases of nervous system; M41.9 Scoliosis, unspecified; Z79.82 Long term (current) use of aspirin; Z79.899 Other long term (current) drug therapy; Z90.710 Acquired absence of both cervix and uterus
CPT/HCPCS: 33285; 36415; 70450; 70553; 71045; 80053; 81001; 82140; 82550; 82607; 82746; 84443; 84484; 85025; 85610; 85730; 87040; 87636; 93005; 93306; 93880; 94760; 95816; 96360; 96361; 99285

== ENCOUNTER → 2023-11-03 | Outpatient (CLI) | payer MEDICARE | END | disposition home or self-care (01) | LOC: LABWHC1 08:16 | PROVIDERS: ATTEND Psychiatry & Neurology Neurology | DX: R56.9 Unspecified convulsions (principal); Z79.899 Other long term (current) drug therapy; Z86.73 Personal history of transient ischemic attack (TIA), and cerebral infarction without residual deficits | CPT/HCPCS: 36415; 80177; 82306; 82607; 83036 ==

== ENCOUNTER → 2024-04-20 | Outpatient (CLI) | payer MEDICARE | END | disposition home or self-care (01) | LOC: LABWHC1 09:05 | PROVIDERS: ATTEND Psychiatry & Neurology Neurology | DX: R56.9 Unspecified convulsions (principal) | CPT/HCPCS: 36415; 80177 ==

== ENCOUNTER → 2024-06-15 | Outpatient (CLI) | payer MEDICARE ==
[2024-06-15 09:10] LABS: HCT 42.6 % (34.0-46.0); MCH 31.3 pg (25.0-35.0); MCHC 32.8 g/dL (31.0-37.0); MCV 95.5 fL (80.0-100.0); Mean Platelet Volume 7.8; Platelet Count 232 k/uL (150-450); RBC 4.46 m/uL (3.80-5.40); RDW 12.5 % (11.5-15.5); WBC 6.1 k/uL (3.8-10.6)
[2024-06-15 09:28] LABS: ALT 20 U/L (4-34); AST 25 U/L (14-36); African American GFR (CKD) >90 (>60 ml/min/1.73 sqM); Albumin 3.8 g/dL (3.5-5.0); Alkaline Phosphatase 70 U/L (38-126); Anion Gap 2 mmol/L; Blood Urea Nitrogen 16 mg/dL (7-17); Calcium 9.5 mg/dL (8.4-10.2); Carbon Dioxide 31 mmol/L (22-30); Chloride 107 mmol/L (98-107); Glucose 86 mg/dL (74-99); Non-African American GFR(CKD) 81 (>60 ml/min/1.73 sqM); Potassium 4.6 mmol/L (3.5-5.1); Sodium 140 mmol/L (137-145); Total Bilirubin 0.7 mg/dL (0.2-1.3); Total Protein 6.4 g/dL (6.3-8.2)
[2024-06-15 09:44] LABS: T4, Free (Free Thyroxine) 0.93 ng/dL (0.78-2.19)
--- NOTE | 2024-06-15 11:58 | MM ---
Reason for Exam: Screening (asymptomatic). Last mammogram was performed 3 year(s) and 8 month(s) ago. Patient History: Menarche at age 12. First Full-Term at age 21. Hysterectomy at age 76. Postmenopausal. Estrogen for 15 years until age 45. Progesterone for 15 years until age 45. Risk Values: Peggy 5 year model risk: 1.3%. NCI Lifetime model risk: 1.4%. Prior Study Comparison: 06/02/2016 Bilateral Screening Mammogram, [facility]. 06/03/2017 Bilateral Screening Mammogram, [facility] 09/26/2020 Bilateral Screening Mammogram, [facility]. Tissue Density: The breasts are almost entirely fatty. Findings: Analyzed By CAD. Left breast loop recorder partially obscures the left breast. Right breast: There is no suspicious group of microcalcifications or new suspicious mass. Left breast: There is no suspicious group of microcalcifications or new suspicious mass. Overall Assessment: Negative, BI-RAD 1 Management: Screening Mammogram of both breasts in [address] [facility] will attempt to contact patient to return for supplemental views and ultrasound if indicated. Patient should continue monthly self-breast exams. A clinical breast exam by your physician is recommended on an annual basis. This exam should not preclude additional follow-up of suspicious palpable abnormalities. Note on Peggy scores and lifetime risk: 1. A Peggy score greater than 3% is considered moderate risk. If this is the case, consider specialist referral to assess eligibility for a risk reducing agent. 2. If overall lifetime risk for the development of breast cancer is 20% or higher, the patient may qualify for future screening with alternating mammogram and breast MRI. [facility], , 06/15/2024 11:54 AM. Electronically signed and approved by: Vu Casas DO
[2024-06-15 16:15] LABS: Chol/HDL Ratio 2.06 Ratio; LDL Cholesterol,Calculated 60.6 mg/dL (0.0-131.0); VLDL Calculation 18.48 mg/dL (5.00-40.00)
--- NOTE | 2024-06-15 17:02 | BD ---
EXAMINATION TYPE: Axial Bone Density DATE OF EXAM: 06/15/2024 CLINICAL HISTORY: 84 years old Female. ICD-10 CODE: M81.8 OSTEOPOROSIS , Z78.0 Height: 59 Weight: 128.5 FRAX RISK QUESTIONS: Alcohol (3 or more units per day): no Family History (Parent hip fracture): Father Glucocorticoids (More than 3mos): no (Ex: prednisone, prednisolone, methylprednisolone, dexamethasone, and hydrocortisone). History of Fracture in Adulthood: no Secondary Osteoporosis: 1. Type 1 Diabetes: no 2. Hyperthyroidism: no 3. Menopause before 45: no 4. Malnutrition: no 5. Chronic liver disease: no Rheumatoid Arthritis: no Current Tobacco Use: no RISK FACTORS HISTORY OF: Hip Fracture (Right/Left): no Spine Fracture: no History of Wrist Fracture: no Surgery to Spine/Hip(right/left)/Wrist (right/left): no MEDICATIONS: Thyroid Medications: no Osteoporosis Medications: no EXAM MEASUREMENTS: Bone mineral densitometry was performed using the Patient [employer]versation [employer] System. Bone mineral density as measured about the Lumbar spine is: ----- L1-L4(G/cm2): 1.012 T Score Values are as follows: ----- L1: -0.4 ----- L2: -1.0 ----- L3: -1.4 ----- L4: -2.7 ----- L1-L4: -1.4 Z Score Values are as follows: ----- L1: 1.7 ----- L2: 1.1 ----- L3: 0.8 ----- L4: -0.6 ----- L1-L4: 0.7 Bone mineral density has: decreased -9.8 % since study of: 07/26/2017 Bone mineral density about the R hip (g/cm2): 0.826 Bone mineral density about the L hip (g/cm2): 0.645 T Score values are as follows: -----R Neck: -0.3 -----L Neck: -1.2 -----R Total: -1.4 -----L Total: -2.9 Z Score values are as follows: -----R Neck: 2.2 -----L Neck: 1.3 -----R Total: 1.0 -----L Total: -0.5 Bone mineral density has: decreased -9.1 % since study of: 07/26/2017 FRAX%s: The graph provided illustrates a 21.8% chance for a major osteoporotic fx and a 12.3% chance for the hips probability for fx in 10 years time. IMPRESSION: Osteoporosis (T Score less than -2.5). There is increased fracture risk and therapy is usually indicated based on age. Re-Screen 1-2 years. NOTE: T-SCORE=SD OF THE YOUNG ADULT MEAN. [facility], , 06/15/2024 5:00 PM
== END | disposition home or self-care (01) ==
LOC: RADBDWWP 07:56
PROVIDERS: ATTEND Family Medicine
CPT/HCPCS: 77063; 77067; 77080; 80053; 80061; 82306; 82607; 84439; 84443; 85027

== ENCOUNTER 2024-11-06 09:49 | Emergency (ER) | payer MEDICARE ==
[2024-11-06 10:00] VITALS: TEMP 98.4
--- NOTE | 2024-11-06 10:19 | ED ---
Back Pain HPI - General Chief Complaint: Back Pain/Injury Stated Complaint: back pain Time Seen by Provider: 11/06/24 10:05 Source: patient, EMS, RN notes reviewed Mode of arrival: EMS Limitations: no limitations - History of Present Illness Initial Comments: This is a an 84-year-old female who presents to the emergency department for lower back pain. Patient states that she has problems with her balance and generalized weakness, causing her to fall very frequently. She has noticed that starting yesterday her lower back was causing pain and was radiating down both legs. This morning she was unable to get out of bed due to her pain. She does have a history of sciatica and states that pain feels similar, however she is also concerned about injuring it due to recent falls. Her also states that they were doing a lot of walking over the last couple of days and wonders if this may have flared up her pain. Currently takes Tylenol and tramadol for pain control with some improvement. Denies any loss of bowel/bladder control or saddle anesthesia. MD Complaint: back pain - Related Data Home Medications Medication Instructions Recorded Confirmed Omeprazole [PriLOSEC] 20 mg PO DAILY 06/16/16 09/29/23 Acetaminophen [Tylenol Extra 500 mg PO Q6H PRN 05/12/21 09/29/23 Strength] DULoxetine HCL [Cymbalta] 60 mg PO DAILY 05/12/21 09/29/23 Potassium Chloride ER [K-Dur 10] 10 meq PO DAILY 05/12/21 09/29/23 Ascorbic Acid [Vitamin C] 500 mg PO DAILY 09/29/23 09/29/23 Atorvastatin [Lipitor] 20 mg PO HS 09/29/23 09/29/23 Cholecalciferol [Vitamin D3 (25 25 mcg PO DAILY 09/29/23 09/29/23 Mcg = 1000 Iu)] Gabapentin 300 mg PO BID 09/29/23 09/29/23 Magnesium Oxide [Mag-Ox] 250 mg PO DAILY 09/29/23 09/29/23 traMADol HCL 50 mg PO BID PRN 09/29/23 09/29/23 Previous Rx's Medication Instructions Recorded Aspirin 81 mg PO DAILY 30 Days #30 tab 10/01/23 Oseltamivir 6Mg/ml Oral Susp 30 mg PO Q12HR 3 Days #6 each 10/01/23 [Tamiflu] levETIRAcetam [Keppra] 500 mg PO Q12HR 30 Days #60 tab 10/01/23 Lidocaine 5% Patch [Lidoderm 5% 1 patch TOPICAL DAILY PRN #30 patch 11/06/24 Patch] methocarbamoL [Robaxin] 500 mg PO QID PRN #30 tab 11/06/24 predniSONE [Deltasone] 20 mg PO BID 5 Days #10 tab 11/06/24 Allergies Allergy/AdvReac Type Severity Reaction Status Date / Time No Known Allergies Allergy Verified 11/06/24 10:00 Review of Systems ROS Statement: Those systems with pertinent positive or pertinent negative responses have been documented in the HPI. ROS Other: All systems not noted in ROS Statement are negative. Past Medical History Past Medical History: GERD/Reflux, Hyperlipidemia, Hypertension Additional Past Medical History / Comment(s): scoliosis, balance issues . History of Any Multi-Drug Resistant Organisms: None Reported Past Surgical History: Appendectomy, Hysterectomy Additional Past Surgical History / Comment(s): neck surgery Past Anesthesia/Blood Transfusion Reactions: No Reported Reaction Past Psychological History: Anxiety, Depression Smoking Status: Former smoker Past Alcohol Use History: None Reported Past Drug Use History: None Reported General Exam Limitations: no limitations General appearance: alert, in no apparent distress Head exam: Present: atraumatic, normocephalic, normal inspection Respiratory exam: Present: normal lung sounds bilaterally. Absent: respiratory distress, wheezes, rales, rhonchi, stridor Cardiovascular Exam: Present: regular rate, normal rhythm Neurological exam: Present: alert, oriented X3, CN II-XII intact Psychiatric exam: Present: normal affect, normal mood Skin exam: Present: warm, dry, intact, normal color. Absent: rash Course Vital Signs 11/06/24 11/06/24 09:52 12:46 Temperature 98.4 F Pulse Rate 63 55 L Respiratory 16 18 Rate Blood Pressure 191/70 158/72 O2 Sat by Pulse 97 93 L Oximetry Medical Decision Making - Medical Decision Making This is an 84 year old female who presents to the emergency department for lower back pain. Was pt. sent in by a medical professional or institution? @ -No Did you speak to anyone other than the patient for history? @ -Her provided the information about them doing a lot of walking recently. Did you review nursing and triage notes? @ -Yes, and I agree, it is accurate with regards to the patient's symptoms. Were old charts reviewed? @ -No Differential Diagnosis? @ -Differential Back Pain: Strain, zoster, cauda equina syndrome, epidural abscess, vertebral osteomyelitis, discitis, fracture, subluxation, disc herniation, DJD, spinal stenosis, dissection, AAA, pancreatitis, peptic ulcer disease, pyelonephritis, kidney stone, this is not meant to be an all-inclusive list. EKG interpreted by me (3pts min.)? @ -Not obtained X-rays interpreted by me (1pt min.)? @ -X-ray of the lumbar spine obtained. My interpretation identifies no acute fractures. CT interpreted by me (1pt min.)? @ -Not obtained U/S interpreted by me (1pt. min.)? @ -Not obtained What testing was considered but not performed? (CT, X-rays, U/S, labs)? Why? @ -None What meds were considered but not given? Why? @ -None Did you discuss the management of the patient with other professionals? @ -No Did you reconcile home meds? @ -No Was smoking cessation discussed for >3mins.? @ -No Was critical care preformed (if so, how long)? @ -No Were there social determinants of health that impacted care today? How? (Homelessness, low income, unemployed, alcoholism, drug addiction, transportation, low edu. Level, literacy, decrease access to med. care, nursing home, rehab)? @ -No Was there de-escalation of care discussed even if they declined? (Discuss DNR or withdrawal of care, Hospice)? @ -No What co-morbidities impacted this encounter? (DM, HTN, Smoking, COPD, CAD, Cancer, CVA, Hep., AIDS, mental health diagnosis, sleep apnea, morbid obesity)? @ -Scoliosis, balance issues, osteoporosis Was patient admitted / discharged? @ -Discharged. X-ray of the lumbar spine obtained. She has moderate to severe multilevel disc space narrowing and multilevel spinous process hypertrophy. No mention is made of any fractures or other acute findings. Pain was well- controlled in the emergency department. We were able to get her up and she was ambulating without difficulty. At that point she was comfortable with discharge home. She had no red flag signs or symptoms and felt like pain was consistent with a sciatica flareup. Prescription for prednisone and lidocaine patches provided with dosing instructions reviewed. Otherwise advised follow-up with her PCP. Patient discharged home in stable condition. Case discussed with ED attending Dr. Cheema. Return precautions reviewed in depth, the patient is instructed to return to the emergency department with any new, worsening, or concerning symptoms. Patient verbalized understanding. Undiagnosed new problem with uncertain prognosis? @ -None Drug Therapy requiring intensive monitoring for toxicity (Heparin, Nitro, Insulin, Cardizem)? @ -None Were any procedures done? @ -None Diagnosis/symptom? @ -Lumbar radiculopathy, sciatica Acute, or Chronic, or Acute on Chronic? @ -Acute Uncomplicated (without systemic symptoms) or Complicated (systemic symptoms)? @ -Uncomplicated Side effects of treatment? @ -None Exacerbation, Progression, or Severe Exacerbation] @ -Not applicable Poses a threat to life or bodily function? @ -No - Lab Data Lab Results 11/06/24 Range/Units 12:03 Urine Color Yellow Urine Appearance Cloudy H (Clear) Urine pH 6.0 (5.0-8.0) Ur Specific [place] 1.029 (1.001-1.035) Urine Protein 1+ H (Negative) Urine Glucose (UA) Negative (Negative) Urine Ketones Negative (Negative) Urine Blood Negative (Negative) Urine Nitrite Negative (Negative) Urine Bilirubin Negative (Negative) Urine Urobilinogen <2.0 (<2.0) mg/dL Ur Leukocyte Esterase Negative (Negative) Urine RBC 15 H (0-5) /hpf Urine WBC 7 H (0-5) /hpf Ur Squamous Epith Cells <1 (0-4) /hpf Calcium Oxalate Crystal Many H (None) /hpf Urine Mucus Occasional H (None) /hpf - Radiology Data Radiology results: report reviewed, image reviewed Disposition Clinical Impression: Sciatica, Lumbar radiculopathy Disposition: HOME SELF-CARE Instructions (If sedation given, give patient instructions): Sciatica (ED), Acute Low Back Pain (ED), Lumbar Radiculopathy (ED) Additional Instructions: Return to the emergency department with any new, worsening, or concerning symptoms. Take the prednisone twice daily for 5 days. Take the Robaxin up to 4 times daily, however be aware that this may make you drowsy. You can also apply the lidocaine patches daily. Follow up with your primary care provider in 1-2 days. Prescriptions: predniSONE [Deltasone] 20 mg PO BID 5 Days #10 tab Lidocaine 5% Patch [Lidoderm 5% Patch] 1 patch TOPICAL DAILY PRN #30 patch PRN Reason: Pain methocarbamoL [Robaxin] 500 mg PO QID PRN #30 tab PRN Reason: Pain Is patient prescribed a controlled substance at d/c from ED?: No Referrals: Chelsi Duran MD [Primary Care Provider] - 1-2 days Time of Disposition: 12:42
--- NOTE | 2024-11-06 10:35 | XR ---
EXAMINATION TYPE: XR lumbar spine 2 or 3V DATE OF EXAM: 11/06/2024 CLINICAL INDICATION: Female, 84 years old with history of Lower back pain, pain TECHNIQUE: Frontal and lateral images of the lumbar spine are obtained. 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 Osseous structures are demineralized which is noted to lower radiographic sensitivity. There is pe rsistent levoconvex scoliosis centered at L3 level. There is persistent straightening of lumbar spine on lateral projection. Vertebral body heights are preserved. There is moderate to severe multilevel disc space narrowing redemonstrated. There is multilevel spinous process hypertrophy. Overlying soft tissue is unremarkable. IMPRESSION: As above. [facility], , 11/06/2024 10:33 AM
[2024-11-06] MEDS: DEXAMETHASONE SOD PHOSPHATE 10 MG/ML 1 ML VIAL IVP STA (10:48)
[2024-11-06] MEDS: LIDOCAINE 4% PATCH TOPICAL ONE (10:49)
[2024-11-06] MEDS: MORPHINE SULFATE 2 MG/ML SYRINGE IVP STA (10:49)
[2024-11-06] MEDS: KETOROLAC 15 MG/ML 1 ML VIAL IVP STA ×2 (10:50→12:07)
[2024-11-06] MEDS: HYDROmorphone 0.5 MG/0.5 ML SYRINGE IVP STA (12:07)
[2024-11-06 12:24] LABS: Appearance,Urine Cloudy (Clear); Bilirubin,Urine Negative (Negative); Blood,Urine Negative (Negative); Calcium Oxalate Crystals,Urine Many /hpf; Color,Urine Yellow; Glucose,Urine (UA) Negative (Negative); Ketones,Urine Negative (Negative); Leukocyte Esterase,Urine Negative (Negative); Mucus,Urine Occasional /hpf; Nitrite,Urine Negative (Negative); Protein,Urine 1+ (Negative); RBC,Urine 15 /hpf (0-5); Specific Gravity,Urine 1.029 (1.001-1.035); Squamous Epithelial Cell,Urine <1 /hpf (0-4); Urobilinogen,Urine <2.0 mg/dL (<2.0); WBC,Urine 7 /hpf (0-5)
[2024-11-06 12:47] VITALS: BP 158/72; PULSE 55; RESP 18
== END 2024-11-06 13:22 | disposition home or self-care (01) ==
LOC: EC 09:49
DX: M51.17 Intervertebral disc disorders with radiculopathy, lumbosacral region (principal); M41.9 Scoliosis, unspecified; R26.81 Unsteadiness on feet; M81.0 Age-related osteoporosis without current pathological fracture; Z87.891 Personal history of nicotine dependence
CPT/HCPCS: 81001; 72100; 99284; 96374; 96375; 96376; J1100; J2270; J1885; J1171

== ENCOUNTER 2024-11-28 09:06 | Day surgery (SDC) | payer MEDICARE ==
[2024-11-28] MEDS: SODIUM CHLORIDE 0.9% 1,000 ML IV SCH (10:20)
[2024-11-28] MEDS: IV FLUID CONTINUATION 1,000 ML IV ONE (10:22)
[2024-11-28 10:26] VITALS: BP 181/77; PULSE 52; RESP 16; TEMP 98.1
[2024-11-28] MEDS: LIDOCAINE 1% INJ 10MG/ML (20 ML MDV) SQ ONE (11:12)
== END 2024-11-28 12:19 | disposition home or self-care (01) ==
LOC: CATHEP 09:06
PROVIDERS: ATTEND Internal Medicine
DX: R55 Syncope and collapse (principal)
CPT/HCPCS: 33286; J0690; J2003